=== PATIENT | female | born 1945 | race Caucasian/White ===

== ENCOUNTER 2017-02-11 06:20 | Outpatient (CLI) | payer MEDICARE, BC ==
[2017-02-11] MEDS ORDERED: IOPAMIDOL-300 50 ML VIAL ONE (06:32)
[2017-02-11] MEDS ORDERED: IOPAMIDOL-300 100 ML VIAL ONE (06:32)
[2017-02-11] MEDS ORDERED: IOPAMIDOL-300 50 ML VIAL PO ONE (11:00)
[2017-02-11] MEDS ORDERED: IOPAMIDOL-300 100 ML VIAL IVP ONE (11:00)
--- NOTE | 2017-02-11 14:30 | CT Report ---
EXAM: CT CHEST EXAM DATE: 02/11/2017 09:00 AM. CLINICAL HISTORY: OVARIAN CANCER. COMPARISONS: None. TECHNIQUE: Routine helical CT imaging was performed through the chest. IV contrast: 100 mL Omni 300. Reconstructions: Coronal and sagittal. In accordance with CT protocol optimization, one or more of the following dose reduction techniques w ere utilized for this exam: automated exposure control, adjustment of mA and/or KV based on patient s ize, or use of iterative reconstructive technique. FINDINGS: Lungs/Pleura: Atelectatic changes in the posterior aspect of the lung bases. No focal consolidation, pleural effusion or suspicious pulmonary nodules or masses. Scarring along the anterior aspect of the left upper lobe. Mediastinum: Normal. No adenopathy or masses. The heart and great vessels are normal. Bones: Unremarkable. Visualized Abdomen: Cholelithiasis. Surgical clips are noted in the left upper abdomen. Other: Coarse calcifications in the left breast near the chest wall. IMPRESSION: 1. No suspicious pulmonary nodules or masses. 2. No lymphadenopathy. 3. Cholelithiasis. [facility] Referring Provider Line: [phone] SITE ID: [id number]
--- NOTE | 2017-02-11 15:10 | CT Report ---
EXAM: CT ABDOMEN AND PELVIS EXAM DATE: 02/11/2017 09:00 AM. CLINICAL HISTORY: OVARIAN CANCER. COMPARISONS: None. TECHNIQUE: Routine helical CT imaging was performed through the abdomen and pelvis. IV contrast: Isov ue 300 100mL. Enteric contrast: No. Reconstructions: Coronal and sagittal. In accordance with CT protocol optimization, one or more of the following dose reduction techniques w ere utilized for this exam: automated exposure control, adjustment of mA and/or KV based on patient s ize, or use of iterative reconstructive technique. FINDINGS: Lung Bases: Unremarkable. Liver: Normal. No masses. Gallbladder/Bile Ducts: Multiple tiny stones layer dependently in the gallbladder. Spleen: Normal. Pancreas: Normal. Adrenal Glands: Normal. Kidneys: Normal. No masses or hydronephrosis. Peritoneal Cavity/Bowel: Patent bowel anastomosis in the left abdomen. No lymphadenopathy. The append ix is not visualized. Pelvic Organs: Status post hysterectomy. Vasculature: There is an IVC filter in place. Bones: No significant abnormality. Other: None. IMPRESSION: 1. Status post hysterectomy and partial colectomy with no lymph adenopathy in the abdomen, pelvis or retroperitoneum. 2. Cholelithiasis. [facility] Referring Provider Line: [phone] SITE ID: [id number]
== END 2017-02-11 06:21 | disposition home or self-care (01) ==
LOC: DI 06:20
PROVIDERS: ATTEND Internal Medicine Hematology & Oncology
DX: C56.9 Malignant neoplasm of unspecified ovary (principal); K80.20 Calculus of gallbladder without cholecystitis without obstruction; Z90.710 Acquired absence of both cervix and uterus; Z90.49 Acquired absence of other specified parts of digestive tract
CPT/HCPCS: 71260; 74177; Q9967

== ENCOUNTER 2017-04-28 10:11 | Emergency (ER) | payer MEDICARE, BC ==
[2017-04-28] MEDS ORDERED: cefTRIAXone 1 GM VIAL IM STA (12:55)
[2017-04-28] MEDS ORDERED: LIDOCAINE 1% 2 ML VIAL SUBQ ONE (12:55)
--- NOTE | 2017-04-28 12:57 | ED Physician Documentation ---
History of Present Illness - Stated complaint Stated Complaint: BUMP/BITE ON ADVENTIST - Chief complaint Chief Complaint: General - History obtained from History obtained from: Patient, Family - History of Present Illness Timing: How many days ago (3) - Additonal information Additional information: 72-year-old female was visiting in [place] and she apparently was bit by something in the right synagogue. She has had increased swelling and redness to the right synagogue since that time and she has a small area of skin necrosis in the center of this. She does not know of any bug that bit her she did not feel when it happened she has developed increasing swelling and redness over the past 3 days. Review of Systems Constitutional: denies: Fever Eyes: denies: Decreased vision Ears: denies: Ear pain Nose: denies: Congestion Throat: denies: Sore throat Respiratory: denies: Cough GI: denies: Vomiting Skin: denies: Rash Musculoskeletal: denies: Neck pain, Back pain, Extremity pain Neurologic: denies: Generalized weakness PD PAST MEDICAL HISTORY - Past Medical History Past Medical History: Yes Other Past Medical History: HX of breast cancer, current ovarian cancer. - Past Surgical History Past Surgical History: Yes - Present Medications Home Medications: Ambulatory Orders Medication Instructions Recorded Confirmed Acetylcysteine 1 each MC DAILY 08/01/12 02/23/17 Arginine 500 mg PO DAILY 08/01/12 02/23/17 Astaxanthin 4 mg PO DAILY 08/01/12 02/23/17 Broccoli Flower [Broccoli] 500 mg PO Q3D 08/01/12 02/23/17 Chlorophyllin/[place] [Chlorophyll 2,000 mg PO Q3D 08/01/12 02/23/17 20 mg Tablet] Cholecalciferol (Vitamin D3) 250 unit PO Q2D 08/01/12 02/23/17 [Vitamin D3] Kathi Root 1 gm PO DAILY 08/01/12 02/23/17 Glucosamn/[place]/C/Mn/[place] 1,500 mg PO DAILY 08/01/12 02/23/17 [[facility] Glucosamine Chondroitin Tb] Krill Oil 100 mg PO Q2D 08/01/12 02/23/17 Multivitamin [Multi-Day Vitamins] 1 each PO Q2D 08/01/12 02/23/17 Quercetin Dihydrate 1 gm MC Q2D 08/01/12 02/23/17 [place] Oil/[place]-3 Fatty Acids 200 mg PO DAILY 08/01/12 02/23/17 [[place] Oil 1,000 mg Softgel] Selenium 400 mcg PO Q3D 08/01/12 02/23/17 Turmeric [Curcumin] 1 gm MC DAILY 08/01/12 02/23/17 Ubidecarenone [Coq-10] 100 mg PO Q2D 08/01/12 02/23/17 Vitamin B Complex [Ultra B-100 1 mg PO Q2D 08/01/12 02/23/17 Complex] Potassium Chloride 10 meq PO DAILY 10/31/14 02/23/17 Cyclophosphamide 50 mg PO DAILY 09/11/16 02/23/17 Cyclophosphamide 50 mg PO QPM 12/16/16 02/23/17 Avastan 04/28/17 Clindamycin HCl [Clindamycin 300MG 300 mg PO QID #28 capsule 04/28/17 CAP] Cytoxin 04/28/17 - Allergies Allergies/Adverse Reactions: Allergies Allergy/AdvReac Type Severity Reaction Status Date / Time Sulfa (Sulfonamide Allergy Intermediate Rash Verified 04/28/17 11:21 Antibiotics) - Social History Does the pt smoke?: No Smoking Status: Never smoker Does the pt drink ETOH?: Yes Does the pt have substance abuse?: No - Immunizations Immunizations are current?: Yes PD ED PE NORMAL - Vitals Vital signs reviewed: Yes (Normal) - General General: Alert and oriented X 3, No acute distress, Well developed/nourished - HEENT HEENT: PERRL, EOMI, Other (There is an area on the right synagogue that is erythematous about 4 cm in diameter into the hairline and there is a central area of necrosis that is asymmetric and approximately 0.5 x 1 cm. There is no drainage from the area there is no lymphangitic streaking there is some tender preauricular area without overlying erythema.) - Neck Neck: Supple, no meningeal sign, No bony TTP - Respiratory Respiratory: No respiratory distress - Derm Derm: Normal color, Warm and dry - Extremities Extremities: No deformity, No edema - Neuro Neuro: No motor deficit, No sensory deficit Eye Opening: Spontaneous Motor: Obeys Commands Verbal: Oriented GCS Score: 15 - Psych Psych: Normal mood, Normal affect Results - Vitals Vitals: Vital Signs - 24 hr 04/28/17 10:18 Temperature 35.8 C L Heart Rate 89 Respiratory 18 Rate Blood Pressure 130/71 O2 Saturation 97 Oxygen O2 Source Room air PD MEDICAL DECISION MAKING - ED course Complexity details: considered differential, d/w patient, d/w family ED course: 72-year-old female with what looks like a spider bite to the right synagogue with a large area of central necrosis for spiders in this area. I suspect she may [facility] [place] Here in the emergency department she is administered Rocephin and she is allergic to sulfa so we will use clindamycin. Departure - Departure Disposition: 01 Home, Self Care Clinical Impression: Spider bite wound Qualifiers: Encounter type: initial encounter Injury intent: accidental or unintentional Qualified Code(s): T63.301A - Toxic effect of unspecified spider venom, accidental (unintentional), initial encounter Condition: Stable Instructions: ED Bite Insect Brown Recluse Spider Follow-Up: Terry Krishnamurthy MD [Primary Care Provider] - Prescriptions: Clindamycin HCl [Clindamycin 300MG CAP] 300 mg PO QID #28 capsule
[2017-04-28] MEDS ORDERED: ONDANSETRON ODT 4 MG TABLET TL STA (13:00)
[2017-04-28 13:36] VITALS: BP 138/83
== END 2017-04-28 13:36 | disposition home or self-care (01) ==
LOC: ED 10:11
DX: T63.301A Toxic effect of unspecified spider venom, accidental (unintentional), initial encounter (principal); Z85.3 Personal history of malignant neoplasm of breast; C56.9 Malignant neoplasm of unspecified ovary
CPT/HCPCS: 96372; 99283; Q0162

== ENCOUNTER 2017-09-28 12:03 | Outpatient (CLI) | payer MEDICARE, BC | END 2017-09-28 12:04 | disposition home or self-care (01) | LOC: RT 12:03 | PROVIDERS: ATTEND Internal Medicine Hematology & Oncology | DX: R00.2 Palpitations (principal) | CPT/HCPCS: 93005 ==

== ENCOUNTER 2018-10-07 10:42 | Outpatient (CLI) | payer MEDICARE, BC ==
[2018-10-07] MEDS ORDERED: IOVERSOL 320 50 ML VIAL ONE (10:55)
[2018-10-07] MEDS ORDERED: IOVERSOL 320 100 ML VIAL IVP ONE ×2 (10:55→12:04)
[2018-10-07] MEDS ORDERED: IOVERSOL 320 50 ML VIAL PO ONE (12:04)
--- NOTE | 2018-10-07 13:12 | CT Report ---
Reason: OVARIAN CANCER Procedure Date: 10/07/2018 Accession Number: [id number] / [id number] Procedure: CT - Abdomen/Pelvis W CPT Code: FULL RESULT: EXAM: CT ABDOMEN AND PELVIS EXAM DATE: 10/07/2018 11:59 AM. CLINICAL HISTORY: Ovarian cancer. COMPARISONS: Abdomen/pelvis w/ 04/04/2014 1:26 PM. Imaging report of CT 02/11/2017. TECHNIQUE: Routine helical CT imaging was performed through the abdomen and pelvis. IV contrast: OPTI 320 100 mL. Enteric contrast: No. Reconstructions: Coronal and sagittal. In accordance with CT protocol optimization, one or more of the following dose reduction techniques were utilized for this exam: automated exposure control, adjustment of mA and/or KV based on patient size, or use of iterative reconstructive technique. FINDINGS: Lung Bases: Unremarkable. Liver: Normal. No masses. Gallbladder/Bile Ducts: Cholelithiasis. Spleen: Normal. Pancreas: Normal. Adrenal Glands: Normal. 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 No masses or hydronephrosis. Peritoneal Cavity/Bowel: There is evidence of prior abdominal surgery including large bowel anastomosis. There is no bowel obstruction. There is no free fluid or free air. There is no adenopathy by size criteria. Pelvic Organs: The patient is status post hysterectomy and salpingo-oophorectomy. Vasculature: Moderate atherosclerotic disease without aortic aneurysm. The IVC filter is in place. Bones: No aggressive osseous lesions are detected. Other: None. IMPRESSION: No active disease is detected. IVC filter legs in contact with lumbar spine, correlate to back pain. If IVC filter is no longer indicated, consider removal. [facility]
== END 2018-10-07 10:43 | disposition home or self-care (01) ==
LOC: EDBD → DI 10:42
PROVIDERS: ATTEND Internal Medicine Hematology & Oncology
DX: C79.82 Secondary malignant neoplasm of genital organs (principal); Z85.43 Personal history of malignant neoplasm of ovary
CPT/HCPCS: 74177; Q9967

== ENCOUNTER 2019-07-18 11:45 | Outpatient (CLI) | payer MEDICARE, BC ==
--- NOTE | 2019-07-18 13:39 | CONSULTATION NOTE ---
Palliative Care Consultation - Referral Referring Provider: Dr. Navin Spangler Time of Visit: [id number] Referral setting: [facility] [place] Referral Reason: Recurrent Ovarian Ca/Goals of Care - Information Sources Records reviewed: Previous records reviewed History/Review of Systems obtained from: Patient Exam limitations: No limitations - History of Present Illness Brief History of Present Illness: This is a angus 74-year-old woman with ovarian cancer, originally diagnosed in 08/2006. She has had multiple rounds of chemotherapy, and currently in clinical remission. She continues on oral Cytoxan, methotrexate, 2 days a week. She has done fairly well with this, without significant side effects. She follows a fairly extensive regimen of supplements, overseen by her . These were originally recommended by skyler, but he has been managing these. With her original diagnosis in 2006, she has surgery with a GARETT/BSO and tumor debulking. When she had a recurrence in 2007, she did have a small bowel obstruction, which included surgery to correct her obstruction, this included support through TPN at that point in time. She had a bowel the bowel anastomosis and March 2009 with an exploratory lap. She also has a history of breast cancer with a left lumpectomy at age 59. She perceives this is been an overall fairly chronic disease for her. But does understand the seriousness of her illness, and she is getting down to limited options. She remains quite engaged in her current regimen, hoping for the best and is quite optimistic. She perceives her quality of life is good. She has good social support, and low symptom burden at this point in time. Palliative care meeting with patient to set up rapport, explore goals of care, and follow for support. Medical/Surgical History - Past Medical History Cardiovascular: reports: Deep vein thrombosis Respiratory: reports: None Neuro: None Endocrine/Autoimmune: reports: None GI: reports: Chronic diarrhea (since surgery) ADMISSION SPECIALIST: reports: Ovarian cancer, Breast cancer : reports: None HEENT: reports: None Psych: denies: Depression, Anxiety Musculoskeletal: reports: None MRSA Hx?: No - Past Surgical History /ADMISSION SPECIALIST: reports: Other (lumpectomy left) Cardiovascular: reports: Other (right chest portacath; IVC filter) HEENT: reports: Tonsil/Adenoidectomy Other past surgical history: Hysterctomy 2006 for original Ovarian CA Stage III; Multiple chemotherapies; SBO treated with gastromy tube and TPN; surgery to correct obst. 03/18 Social History - Living Situation Living arrangement: At home Living Situation: With spouse/s.o. Support System: Patient lives at home with her , who is very involved and committed to her and supporting her in her treatment. She has 2 sons and a daughter, a significant amount of support from her girlfriends. She has a group she calls the "[employer]", Have been with her for several years. She is about ready to celebrate her 50th anniversary. She and her have worked together, both now are retired. She does perceive she has good support. Family History - Family History Family History: Mother: ( at age 92), Cancer (mother 68), Father: , Other family: Alive and Well (1/2 brother /sister) Medications/Allergies - Medications Home Medications: Ambulatory Orders Medication Instructions Recorded Confirmed Acetylcysteine 1 each MC DAILY 08/01/12 05/02/19 Arginine 500 mg PO DAILY 08/01/12 05/02/19 Astaxanthin 4 mg PO DAILY 08/01/12 05/02/19 Broccoli Flower [Broccoli] 500 mg PO Q3D 08/01/12 05/02/19 Chlorophyllin/[place] [Chlorophyll 2,000 mg PO Q3D 08/01/12 05/02/19 20 mg Tablet] Cholecalciferol (Vitamin D3) 250 unit PO Q2D 08/01/12 05/02/19 [Vitamin D3] Glucosamn/[place]n/C/Mn/[place] 1,500 mg PO DAILY 08/01/12 05/02/19 [[facility]vs Glucosamine Chondroitin Tb] Multivitamin [Multi-Day Vitamins] 1 each PO Q2D 08/01/12 05/02/19 Quercetin Dihydrate 1 gm MC Q2D 08/01/12 05/02/19 [place] Oil/[place]-3 Fatty Acids 200 mg PO DAILY 08/01/12 05/02/19 [[place] Oil 1,000 mg Softgel] Selenium 400 mcg PO Q3D 08/01/12 05/02/19 Vitamin B Complex [Ultra B-100 1 mg PO Q2D 08/01/12 05/02/19 Complex] Potassium Chloride 10 meq PO DAILY 10/31/14 05/02/19 Cyclophosphamide 50 mg PO DAILY 09/11/16 05/02/19 Lidocaine/Prilocain 2.5% Cream 1 applic TOP ONCE PRN 05/06/17 05/02/19 [Emla 2.5% Cream] Astragalus 1,000 mg PO DAILY 08/10/17 05/02/19 Dandelion 1,575 mg PO DAILY 08/10/17 05/02/19 Echinacea Purpurea,Angustif Xt 400 mg PO DAILY 08/10/17 05/02/19 [Echinacea Extract 125 mg Cap] Folic Acid 300 mg PO DAILY 08/10/17 05/02/19 Ginkgo Biloba [place] Extract [Ginkgo 120 mg PO DAILY 08/10/17 05/02/19 Biloba] Ginseng 500 mg PO DAILY 08/10/17 05/02/19 Goldenseal 1,400 mg PO DAILY 08/10/17 05/02/19 Horny Goat [place] 750 mg PO DAILY 08/10/17 05/02/19 Milk Thistle 480 mg PO DAILY 08/10/17 05/02/19 Stinging Nettle 500 mg PO DAILY 08/10/17 05/02/19 Ondansetron [Ondansetron Odt] 8 mg ORAL Q8HR PRN 08/09/18 05/02/19 Prochlorperazine Maleate 10 mg PO Q6HR PRN 08/09/18 05/02/19 [Compazine] Methotrexate 5 mg PO Q72H 12/27/18 05/02/19 Cyanocobalamin [Vitamin B-12] 1,000 mcg SUBQ ONCE 05/18/19 05/23/19 - Allergies Allergies/Adverse Reactions: Allergies Allergy/AdvReac Type Severity Reaction Status Date / Time Sulfa (Sulfonamide Allergy Intermediate Rash Verified 05/02/19 11:56 Antibiotics) carboplatin Allergy Unknown Verified 05/02/19 11:56 Review of Systems - Constitutional Constitutional: reports: Fatigue, Weight stable - Ears, Nose & Throat Ears, Nose & Throat: reports: Hearing loss (mild) - Cardiovascular Cardiovascular: denies: Edema, Lightheadedness, Decr. exercise tolerance - Respiratory Respiratory: denies: SOB at rest - Gastrointestinal Gastrointestinal: reports: Diarrhea (regular loose stools daily), Good appetite. denies: Nausea, Reflux/heartburn - Integumentary Integumentary: reports: Dryness - Neurological Neurological: reports: Numbness - Psychiatric Psychiatric: denies: Depression, Anxiety - Endocrine Endocrine: reports: Hypothyroidism - Hematologic/Lymphatic Hematologic/Lymphatic: reports: Anemia (11.3; patient takes multiple supplements for support). denies: Recurrent infections - All Other Systems All Other Systems: reports: Reviewed and negative Physical Exam - Physical Exam General Appearance: positive: No acute distress, Alert Eyes Bilateral: positive: Normal inspection ENT: positive: No signs of dehydration Neck: positive: Trachea midline Respiratory: positive: No respiratory distress Abdomen: positive: Soft, Tenderness (mild) Skin: positive: Pallor, Dryness Extremities: positive: No pedal edema Neurologic/Psychiatric: positive: Oriented x3, Mood/affect nml Palliative Care - POLST Patient has POLST: No Pain: No pain Tiredness/Fatigue: Mild (1-3) Drowsiness/Sedation: None Nausea: None Anorexia: None Dyspnea: None Depression: None Anxiety: None Feelings of wellbeing/Perceived Quality of Life: Good, Acceptable, No change Sleep: Sleeps well Performance Status: Patient is quite active, gardens for several hours at a time. She does pace herself. She is able to manage her own ADLs, and presents as an ECOG 0. - Palliative Care Discussion: Patient understands the seriousness of her illness, and at some point there will be more limited treatment options. She has been through multiple lines of chemotherapy, suspect this will continue if this 1 does not work. She sees her disease as fairly chronic, she does not like to think about it or talk about it. She is very and very intentional not to make cancer what she is about, and tends to let her worry more about this. She does understand her worries about her, he is quite protective. She does worry about him losing her. She has been through multiple serious rounds on this journey with her cancer, does feel like she has good coping mechanisms and good support. We did discuss the role of palliative care, though would be limited at this time, will continue to check in to establish ongoing rapport. Given information on palliative care as well as contact information. Results - Lab Results Lab results reviewed: Yes Impression and Recommendations - Palliative Care Impression: This is a angus 74-year-old woman with refractory relapsed ovarian cancer, overall fairly stable on her current regimen and tolerating her oral medications for maintenance therapy. She is participating in supportive care of alternative treatments. Palliative care meeting patient to set rapport, and offer ongoing support. Recommendations/Counseling Done: 1. Diarrhea. Patient does attribute this to large amount of supplements she takes. Did request she get us an updated list to make sure it is reflective of what she is currently taking. She has had some weight loss, though this is been somewhat intentional on her part. She does report adequate calorie and fluid intake. This is been fairly long-term, and not problematic. 2. Advanced care planning. Patient's goals are to continue to integrate treatment into her regular life and schedule, she continues to focus on quality of life as well as quantity. She is been long-term on treatment, this is been a fairly chronic journey for her with some significant ups and downs. Introduced palliative care and role for support, will try to schedule next visit with her and her , and further explore advance care planning documents. Time Spent: 45 minutes with greater than 50% of this done in counseling regarding role of palliative care, exploration of patient's goals, patient presents with low symptom burden, has good social support, will continue to build rapport and provide ongoing support and anticipatory guidance.
== END 2019-07-18 11:46 | disposition home or self-care (01) ==
LOC: PC 11:45
PROVIDERS: ATTEND Nurse Practitioner Adult Health
DX: Z51.5 Encounter for palliative care (principal); C56.9 Malignant neoplasm of unspecified ovary; K52.89 Other specified noninfective gastroenteritis and colitis; Z79.899 Other long term (current) drug therapy; Z85.3 Personal history of malignant neoplasm of breast; Z90.49 Acquired absence of other specified parts of digestive tract
CPT/HCPCS: 99204

== ENCOUNTER 2020-08-08 15:10 | Outpatient (CLI) | payer MEDICARE, BC ==
[2020-08-08] MEDS ORDERED: GADOBUTROL 10 MMOL/10 ML VIAL ONE (15:21)
[2020-08-08] MEDS: GADOBUTROL 10 MMOL/10 ML VIAL IVP ONE (16:50)
--- NOTE | 2020-08-08 17:35 | MRI Report ---
PROCEDURE: Lumbar Spine W/WO INDICATIONS: OVARIAN CA, LOW BACK PAIN CONTRAST: IV CONTRAST: Gadavist ml: 7.4 TECHNIQUE: Noncontrast sagittal T1 spin echo and T2 fast spin echo, sagittal STIR, axial T1 and T2 fast spin ech o through the lumbar spine. In cases with scoliosis, additional coronal T2 fast spin echo may be per formed. After the administration of contrast, sagittal and axial T1 spin echo with fat saturation th rough the lumbar spine. COMPARISON: None. FINDINGS: Image quality: Excellent. Alignment and curvature: There is normal bony alignment. Marrow: Marrow is of normal overall signal. Abnormal T1 and T2 signal is present at L1. There is co mpression deformity measuring approximately 54%. Mild appearance of enhancement is identified. No vis ualized associated enhancing soft tissue mass. Spinal cord: Conus medullaris terminates at the L1-L2 level. Visualized spinal cord demonstrates no rmal signal, without suspicious enhancement. Paraspinous soft tissues: No paravertebral masses or abnormal enhancement. Discs: Severe desiccation is present of the lumbar spine. T12-L1: Minimal disc bulge with minimal spinal stenosis. No foraminal narrowing. L1-L2: No disc bulge, spinal stenosis or foraminal narrowing. Facet and ligamentum flavum hypertro phy are present. L2-L3: Mild disc bulge with minimal canal narrowing. Minimal to mild left foraminal narrowing with facet and ligamentum flavum hypertrophy. L3-L4: Mild disc bulge with minimal spinal stenosis. [id number]-[id number] right foraminal narrowing wit h facet and ligamentum flavum hypertrophy. L4-L5: Mild disc bulge with mild spinal stenosis. Minimal to mild bilateral foraminal narrowing wit h facet and ligamentum flavum hypertrophy. L5-S1: Mild disc bulge without spinal stenosis. Moderate bilateral foraminal narrowing with facet a nd ligamentum flavum hypertrophy. IMPRESSION: 1. 54% compression fracture, appearing acute/subacute at L1 without spinal stenosis. While there is n o associated paravertebral soft tissue mass, there are patchy areas of abnormal signal identified thr oughout the vertebral body suggestive of pathologic fracture. 2. Multilevel degenerative changes. Reviewed by: Pricila Almanza MD on 08/08/2020 5:34 PM PDT Approved by: Pricila Almanza MD on 08/08/2020 5:34 PM PDT Station ID: [id number]
== END 2020-08-08 15:11 | disposition home or self-care (01) ==
LOC: DI 15:10
PROVIDERS: ATTEND Internal Medicine
DX: M48.56XA Collapsed vertebra, not elsewhere classified, lumbar region, initial encounter for fracture (principal); M48.05 Spinal stenosis, thoracolumbar region; M47.816 Spondylosis without myelopathy or radiculopathy, lumbar region; M48.061 Spinal stenosis, lumbar region without neurogenic claudication; M48.07 Spinal stenosis, lumbosacral region
CPT/HCPCS: 72158; A9585

== ENCOUNTER 2020-08-09 15:09 | Emergency (ER) | payer MEDICARE, BC ==
--- OUTSIDE RECORDS SUMMARY | 2020-08-09 15:12 | EXTERNAL MEDICAL SUMMARY RPT | Continuity of Care Document ---
:1945 Demographics Phone Unavailable Preferred Language Unknown Marital Status Unknown Adventist Affiliation Unknown Race Unknown Ethnic Group Unknown Author Organization [place] Address [address] [place] [address] Phone Allergies Encounters Medications Problems date description facility [id number] Ovarian CA, inpatient chemotherapy [facility] treatment Results
--- OUTSIDE RECORDS SUMMARY | 2020-08-09 15:18 | EXTERNAL MEDICAL SUMMARY RPT | Continuity of Care Document ---
:1945 Demographics Phone Unavailable Preferred Language Unknown Marital Status Unknown Rastafarian Affiliation Unknown Race Unknown Ethnic Group Unknown Author Organization [place] Address [address] [place] [address] Phone Allergies Encounters Medications Problems date description facility [id number] Ovarian CA, inpatient chemotherapy [facility] treatment Results
[2020-08-09 15:32] VITALS: BP 142/65
--- NOTE | 2020-08-09 16:08 | ED Physician Documentation ---
History of Present Illness - Stated complaint Stated Complaint: BACK PX - Chief complaint Chief Complaint: Back Pain - History obtained from History obtained from: Patient, Family () - Additonal information Additional information: 75-year-old woman with history of metastatic ovarian cancer and treatment intermittently over the past several years presents with back pain intermittent over the past month, found to have L1 compression fracture by her oncologist and sent here for referral to spine surgery as well as for pain control. The patient states that she feels fine at present and would like a refill on her prescription for Robaxin. Denies numbness or weakness, groin anesthesia, urinary or fecal incontinence or retention. Review of Systems Skin: denies: Lesions Musculoskeletal: reports: Back pain Neurologic: denies: Focal weakness, Numbness PD PAST MEDICAL HISTORY - Past Medical History Past Medical History: Yes Cardiovascular: Deep vein thrombosis Respiratory: None Neuro: None Endocrine/Autoimmune: None GI: Chronic diarrhea HOME ECONOMIST: Ovarian cancer, Breast cancer : None HEENT: None Musculoskeletal: None - Past Surgical History Past Surgical History: Yes /HOME ECONOMIST: Other Cardiovascular: Other HEENT: Tonsil/Adenoidectomy - Present Medications Home Medications: Ambulatory Orders Medication Instructions Recorded Confirmed Acetylcysteine 1 each MC DAILY 08/01/12 08/01/20 Arginine 500 mg PO DAILY 08/01/12 08/01/20 Astaxanthin 4 mg PO DAILY 08/01/12 08/01/20 Broccoli Flower [Broccoli] 500 mg PO Q3D 08/01/12 08/01/20 Chlorophyllin/[place] [Chlorophyll 2,000 mg PO Q3D 08/01/12 08/01/20 20 mg Tablet] Cholecalciferol (Vitamin D3) 250 unit PO Q2D 08/01/12 08/01/20 [Vitamin D3] Glucosamn/[place]/C/Mn/[place] 1,500 mg PO DAILY 08/01/12 08/01/20 [Cvs Glucosamine Chondroitin Tb] Multivitamin [Multi-Day Vitamins] 1 each PO Q2D 08/01/12 08/01/20 Quercetin Dihydrate 1 gm MC Q2D 08/01/12 08/01/20 [place] Oil/[place]-3 Fatty Acids 200 mg PO DAILY 08/01/12 08/01/20 [[place] Oil 1,000 mg Softgel] Selenium 400 mcg PO Q3D 08/01/12 08/01/20 Vitamin B Complex [Ultra B-100 1 mg PO Q2D 08/01/12 08/01/20 Complex] Potassium Chloride 10 meq PO DAILY 10/31/14 08/01/20 Cyclophosphamide 50 mg PO DAILY 09/11/16 08/01/20 Lidocaine/Prilocain 2.5% Cream 1 applic TOP ONCE PRN 05/06/17 08/01/20 [Emla 2.5% Cream] Astragalus 1,000 mg PO DAILY 08/10/17 08/01/20 Dandelion 1,575 mg PO DAILY 08/10/17 08/01/20 Echinacea Purpurea,Angustif Xt 400 mg PO DAILY 08/10/17 08/01/20 [Echinacea Extract 125 mg Cap] Folic Acid 300 mg PO DAILY 08/10/17 08/01/20 Ginkgo Biloba [place] Extract [Ginkgo 120 mg PO DAILY 08/10/17 08/01/20 Biloba] Ginseng 500 mg PO DAILY 08/10/17 08/01/20 Goldenseal 1,400 mg PO DAILY 08/10/17 08/01/20 Horny Goat [place] 750 mg PO DAILY 08/10/17 08/01/20 Milk Thistle 480 mg PO DAILY 08/10/17 08/01/20 Stinging Nettle 500 mg PO DAILY 08/10/17 08/01/20 Ondansetron [Ondansetron Odt] 8 mg ORAL Q8HR PRN 08/09/18 08/01/20 Prochlorperazine Maleate 10 mg PO Q6HR PRN 08/09/18 08/01/20 [Compazine] Methotrexate [Methotrexate Sodium] 2.5 mg PO DAILY 12/27/18 08/01/20 Cyanocobalamin [Vitamin B-12] 1,000 mcg SUBQ ONCE 05/18/19 08/01/20 methocarbamoL [Robaxin] 1 tablet PO Q6HR PRN 08/08/20 08/08/20 methocarbamoL [Robaxin] 500 mg PO Q8H PRN #90 tablet 08/09/20 - Allergies Allergies/Adverse Reactions: Allergies Allergy/AdvReac Type Severity Reaction Status Date / Time Sulfa (Sulfonamide Allergy Intermediate Rash Verified 08/09/20 15:32 Antibiotics) carboplatin Allergy Unknown Verified 08/09/20 15:32 - Social History Does the pt smoke?: No Smoking Status: Never smoker Does the pt drink ETOH?: Yes Does the pt have substance abuse?: No - Immunizations Immunizations are current?: Yes - POLST Patient has POLST: No PD ED PE NORMAL - Vitals Vital signs reviewed: Yes - General General: Alert and oriented X 3, No acute distress, Well developed/nourished - HEENT HEENT: Atraumatic, PERRL, EOMI - Neck Neck: No bony TTP - Back Back: Other (lumbar spine discomfort to palpation) - Derm Derm: Normal color - Extremities Extremities: No deformity, Other (2+ bilateral DP pulses. normal sensation and strength. ambulatory without difficulty) - Neuro Neuro: Alert and oriented X 3, No motor deficit, No sensory deficit Results - Vitals Vitals: Vital Signs - 24 hr 08/09/20 15:28 Heart Rate 80 Respiratory 14 Rate Blood Pressure 142/65 H O2 Saturation 100 Oxygen O2 Source Room air PD MEDICAL DECISION MAKING - ED course ED course: Patient declining pain medication, requesting a refill for her Robaxin. She will follow up with her oncologist. Return precautions given. Departure - Departure Disposition: Home, Self Care Clinical Impression: Compression fracture of L1 lumbar vertebra, Back pain Condition: Good Instructions: ED Fx Comp Vertebral Follow-Up: Navin Spangler MD [Physician No Access] - Prescriptions: methocarbamoL [Robaxin] 500 mg PO Q8H PRN #90 tablet PRN Reason: Pain Comments: It was a pleasure meeting you today. Please follow-up with your oncologist this week in regards to referral to pain management and spine surgery. Take your muscle relaxer as needed for pain. You may need physical therapy. Return to the emergency department if you experience any new or worsening symptoms or have other concerns. I am providing you a referral for evaluation by a spine surgeon at the spine program at [facility] in [place]. The Spine Program at [facility] offers complete care for back and spine conditions. Location: [address] [place] [address]
== END 2020-08-09 16:19 | disposition home or self-care (01) ==
LOC: ED 15:09
DX: M48.56XA Collapsed vertebra, not elsewhere classified, lumbar region, initial encounter for fracture (principal); M54.9 Dorsalgia, unspecified; C79.60 Secondary malignant neoplasm of unspecified ovary
CPT/HCPCS: 99282; 99284

== ENCOUNTER 2020-08-15 10:53 | Outpatient (CLI) | payer MEDICARE, BC ==
--- NOTE | 2020-08-15 12:14 | CONSULTATION NOTE ---
Palliative Care Follow Up - Referral Referring Provider: Dr. Navin Spangler Time of Visit: 1145 60 min Referral setting: [facility] Referral Reason: Acute Back Pain/Met Ovarian CA - Information Sources Records reviewed: Previous records reviewed History/Review of Systems obtained from: Patient, Family () - History of Present Illness Update Brief HPI Update: This is a angus 75-year-old woman with ovarian cancer, with original diagnosis back in 08/2006. She has had multiple rounds of chemotherapy, and with the original diagnosis in 2006 had a surgery with a TA H/BSO and tumor debulking. She did have a recurrence in 2007 with small bowel obstruction, for which she was on TPN for 9 months, she has since had surgery to correct obstruction with some residual diarrhea. Her most recent progression was at the vaginal apex in 05/2020, she had been restarted on gemcitabine/Taxol 08/07/2020, after trial of carbo/Taxol with recurrent reactions to the carboplatinum. She does have some persistent fatigue, unfortunately most recently she presented with acute back pain. Sounds like she has had some chronic lower back pain for last 2-/2 3 months which was exacerbated with heavy lifting, But then had an acute exacerbation after lifting some heavy concrete blocks at that point in time most likely sustained her L T1 compression fracture. She was seen in the ED on , which showed a 54% compression fracture appearing acute/subacute at L1 without spinal stenosis and no associated paravertebral soft mass, there were patchy areas of abnormal signal identified throughout the vertebral body suggestive of a pathologic fracture. They are awaiting referral to the spine clinic, she originally had acute 10 out of 10 pain, this is slowly improved but still remains quite uncomfortable with a 7 out of 10 today. She is taking Robaxin 500 mg every 8 hours, supplemented with ibuprofen 200 mg every 4 hours with better control pain. Pain is worse with heat, twisting, sitting, relieved with position changes, ice, and medication.She would like to avoid opioids if possible, and would like not to make any dramatic changes until she sees the green building design specialist. Her functional status is impacted in the context she is ambulating with a walker at home, is fairly fatigued both from her residual from chemotherapy as well as the pain, she still has had some residual incontinence, concern for retention, she has ongoing diarrhea as a result of her reanastomosis. Patient also has persistent and worsening peripheral neuropathy, describes this as numbness and denies any tingling or pain with this. Past Medical History: DVT, chronic diarrhea, ovarian cancer, breast cancer, left lumpectomy, right chest Port-A-Cath, IVC filter, tonsil/adenectomy, hysterectomy 2006 for original ovarian CA stage III, multiple chemotherapies, SBO treated with gastrostomy tube and TPN, with surgery to correct obstruction 03/18 Social History - Living Situation Living arrangement: At home Living Situation: With spouse/s.o. Support System: Patient is here with her Terry, he is actively involved in her care and provides significant amount of support. He does have his own regimen of supplements and other supportive therapies he integrates into her care. They have been for over 51 years, live in [place]. Medications/Allergies - Medications Home Medications: Ambulatory Orders Medication Instructions Recorded Confirmed Cholecalciferol (Vitamin D3) 250 unit PO Q2D 08/01/12 08/15/20 [Vitamin D3] [place] Oil/[place]-3 Fatty Acids 200 mg PO DAILY 08/01/12 08/15/20 [[place] Oil 1,000 mg Softgel] Selenium 400 mcg PO .Q 2 DAYS 08/01/12 08/15/20 Vitamin B Complex [Ultra B-100 1 mg PO Q2D 08/01/12 08/15/20 Complex] Potassium Chloride 10 meq PO .Q2DAYS 10/31/14 08/15/20 Lidocaine/Prilocain 2.5% Cream 1 applic TOP ONCE PRN 05/06/17 08/15/20 [Emla 2.5% Cream] Astragalus 1,000 mg PO DAILY 08/10/17 08/15/20 Echinacea Purpurea,Angustif Xt 400 mg PO DAILY 08/10/17 08/15/20 [Echinacea Extract 125 mg Cap] Folic Acid 300 mg PO .Q2 DAYS 08/10/17 08/15/20 Ginkgo Biloba [place] Extract [Ginkgo 120 mg PO DAILY 08/10/17 08/15/20 Biloba] Goldenseal 1,400 mg PO DAILY 08/10/17 08/15/20 Horny Goat [place] 750 mg PO DAILY 08/10/17 08/15/20 Milk Thistle 480 mg PO DAILY 08/10/17 08/15/20 Stinging Nettle 500 mg PO DAILY 08/10/17 08/15/20 Ondansetron [Ondansetron Odt] 8 mg ORAL Q8HR PRN 08/09/18 08/15/20 Cyanocobalamin [Vitamin B-12] 1,000 mcg SUBQ .MONTHLY 05/18/19 08/15/20 methocarbamoL [Robaxin] 500 mg PO Q8H PRN #90 tablet 08/09/20 08/15/20 Ascorbic Acid [Vitamin C] 1 cap PO .Q2DAY 08/15/20 08/15/20 Calcium Carbonate [Calcium] 1 cap PO .Q2 DAY 08/15/20 08/15/20 Copper [Paragard T 380-A] 1 tab PO .Q2DAY 08/15/20 08/15/20 Ferrous Bis-Glycinate Chelate 1 tab PO .Q 2DAYS 08/15/20 08/15/20 [Iron Glycinate] HYDROcod/ACETAM 5/325 [[place] 5/325] 1 - 2 tab PO Q4HR PRN MDD 8 08/15/20 08/15/20 Ibuprofen 200 mg PO Q4HR 08/15/20 08/15/20 Magnesium 1 cap PO .Q2DAY 08/15/20 08/15/20 Resveratrol 1 cap PO DAILY 08/15/20 Tumeric 1 cap PO DAILY 08/15/20 Vitamin E 1 cap PO .Q2DAY 08/15/20 08/15/20 Zinc Gluconate [Zinc] 1 tab PO .Q2 DAY 08/15/20 08/15/20 - Allergies Allergies/Adverse Reactions: Allergies Allergy/AdvReac Type Severity Reaction Status Date / Time Sulfa (Sulfonamide Allergy Intermediate Rash Verified 08/09/20 15:32 Antibiotics) carboplatin Allergy Unknown Verified 08/09/20 15:32 Review of Systems - Constitutional Constitutional: reports: Fatigue (persistent; worsened with chemo), Weakness, Weight loss (lost 20 pounds over last few months, regained 9) - Ears, Nose & Throat Ears, Nose & Throat: denies: Mouth lesions - Cardiovascular Cardiovascular: reports: Decr. exercise tolerance. denies: Chest pain, Edema - Respiratory Respiratory: reports: SOB with exertion. denies: Cough - Gastrointestinal Gastrointestinal: reports: Diarrhea (intermittent loperamide), Early satiety, Good appetite. denies: Nausea (uses antiemetic for several days after tx with good results) - Genitourinary Genitourinary: reports: Dysuria, Incontinence - Musculoskeletal Musculoskeletal: reports: Back pain, Muscle aches, Stiffness, Limited range of motion, Muscle weakness, Assistive devices (uses a walker at home) - Integumentary Integumentary: reports: Dryness, Hair changes (alopecia) - Neurological Neurological: reports: General weakness, Numbness (worsening in LE) - Psychiatric Psychiatric: reports: Anxiety. denies: Depression - Hematologic/Lymphatic Hematologic/Lymph: denies: Recurrent infections (negative UA) - All Other Systems All Other Systems: reports: Reviewed and negative Physical Exam - Vital Signs Pulse Rate: 82 Respiratory Rate: 18 Blood Pressure: 112/68 - Physical Exam General Appearance: positive: Alert, Mild distress (appears with pain behaviors; difficulty sitting) Eyes Bilateral: positive: Normal inspection, Other (periorbital edema) Neck: positive: Trachea midline Respiratory: positive: No respiratory distress Skin: positive: Pallor, Dryness Extremities: positive: No pedal edema Neurologic/Psychiatric: positive: Oriented x3 Palliative Care - POLST Patient has POLST: No Pain: Pain improved, Location (band across back), Severity (09/15), Comment (using robaxin 500 mg q8 and ibuprofen 200 mg q4 ATC) Tiredness/Fatigue: Mild (1-3) Drowsiness/Sedation: Mild (1-3) Nausea: None Anorexia: Mild (1-3) Dyspnea: Mild (1-3) Depression: Mild (1-3) Anxiety: Mild (1-3) Feelings of wellbeing/Perceived Quality of Life: Fair, Acceptable, Improved Sleep: Variable sleep pattern Performance Status: Patient has had a decline in functional status, this is attributed both to persistent fatigue from chemotherapy as well as her pain.She does use a walker at home, does have some increased pain getting from sitting to standing, is able to manage her ADLs and does have her to assist - Palliative Care Discussion: Patient seen over a year ago with low symptom burden, during the pandemic, I perceived her condition is a chronic condition and taken in stride. She does report with recurrent disease this last early winter, did have some depression but is feeling she is taking things in stride again. She feels like she has good support, was disappointed her carboplatinum trial failed, she is now starting a new treatment. Continues to focus on the positive. Results - Lab Results Lab results reviewed: Yes Impression and Recommendations - Palliative Care Impression: This is a angus 75-year-old woman with recurrent ovarian cancer the vaginal cuff, unfortunately did not tolerate her carboplatinum regimen, is transitioning to gemcitabine and Taxol. She in the meantime is presented with an acute L1 compression fracture, with sequela of acute pain. This is improved somewhat, but is still impacting both comfort and functional level. Palliative care meeting with patient to review pain and symptom management as well as develop rapport in the setting of stage IV disease Recommendations/Counseling Done: 1. Acute pain secondary to L1 compression fracture. MRI reads it as most likely a pathologic fracture, does have a bone DEXA scan from 2016 that did show osteopenia, has been on long-term treatment. None of her previous CT scans note any osseous lytic lesions, has impact her functional status is well as increased severity of pain. She is awaiting consult from spine clinic. She is somewhat hesitant to make any changes until she has had an evaluation. She is currently taking ibuprofen 200 mg every 4 hours [id number], as well as Robaxin 500 mg every 8 hours, though does report the spasm component has improved. Counseling provided regarding options, recommended topical Salonpas to area, on in a.m. and off in p.m. He is uncomfortable for her, rec commended continue with icing. She is currently on an NSAID ibuprofen 200 mg every 4 hours, recommended considering transition to leave 1 AM and p.m. for decreased pill burden as well as some minor improvement in side effects. Given the fluctuating nature of her pain, and likely for exacerbation with injury, I did prescribe hydrocodone 5 mg / 325 mg APAP 1-2 tabs every 4 hours not to exceed 8 tabs. Reviewed could use for rescue pain, also encourage could supplement her pain regimen with one half tab on schedule every 4 hours to see if improved management. Will follow up with her next week, or after she is seen spine surgeon, if needs further long-acting medication/PT referral. Patient is taking adequate precautions, using walker and fall precautions. 2. Recurrent ovarian cancer at vaginal cuff. Patient has been heavily treated over the last 12 years for her ovarian cancer, reports she is taking this in stride, has not had any persistent side effects other than worsening numbness, no peripheral neuropathic pain. May be limiting factor. 3. Stress incontinence. We will continue to monitor, does not appear to have retentive symptoms, but certainly concern for spinal cord compression and/or tumor compression in the pelvic region. Patient did have a UA to rule out infection. Patient reports at this point in time no further bleeding episodes. 4. Advanced care planning. Patient with supportive community, has continued to be quite positive and persist, integrating via her 's focus of alternative treatments and supplements. Did get updated list given concern for interactions particular with antioxidants, will continue to monitor.Meeting with patient and first time with palliative care over a year, will continue to explore goals of care as well as develop rapport. 60 minutes With review of oncology notes, MRI, labs, medications, [id number] for patient evaluation, counseling regarding pain medication and management and coordination with oncology team
== END 2020-08-15 10:54 | disposition home or self-care (01) ==
LOC: PC 10:53
PROVIDERS: ATTEND Nurse Practitioner Adult Health
DX: Z51.5 Encounter for palliative care (principal); M48.56XA Collapsed vertebra, not elsewhere classified, lumbar region, initial encounter for fracture; C56.9 Malignant neoplasm of unspecified ovary; N39.3 Stress incontinence (female) (male); Z79.899 Other long term (current) drug therapy
CPT/HCPCS: 99215

== ENCOUNTER 2020-09-04 08:45 | Outpatient (CLI) | payer MEDICARE, BC ==
--- NOTE | 2020-09-04 12:56 | CONSULTATION NOTE ---
Palliative Care Follow Up - Referral Referring Provider: Dr. Navin Spangler Time of Visit: 0831 Referral setting: [facility] [place] Referral Reason: Acute on Chronic Back Pain/Met Ovarian CA - Information Sources Records reviewed: Previous records reviewed History/Review of Systems obtained from: Patient Exam limitations: No limitations - History of Present Illness Update Brief HPI Update: This is a angus 75-year-old woman with ovarian cancer, with original diagnosis in 08/2006. She has had multiple rounds of chemotherapy, and with most recent progression at vaginal apex 05/2020, she has restarted on gemcitabine/Taxol on 08/07/2020. She has been tolerating it fairly well, has had some fatigue, her most problematic issue has been an acute L1 compression fracture, that showed 54% compression, without spinal stenosis. It has continued to improve, she is currently taking Robaxin and Tylenol about every 8 hours, does use some ice for relief, but has returned to a better level of function. She does have hydrocodone 5 mg/acetaminophen 325 mg for acute pain if needed but has not had any problems with this. She did see the spinal clinic, they encouraged her to wear a brace, and most likely will take about 6 months to heal. She also was to have a follow-up test, and follow-up with conversation at the spine clinic gets lumbar x-rays, they are going to send the order. 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 She has i ntermittent loose stools, she is able to control these with Imodium, has remained weight neutral, and denies depression or anxiety. Past Medical History: DVT, chronic diarrhea, ovarian cancer, breast cancer left lumpectomy, right chest Port-A-Cath, IVC filter, tonsil/adenectomy, hysterectomy 2006 for original ovarian CA stage III, multiple rounds of chemotherapy, SBO treated with gastrostomy tube and TPN with surgical to correct obstruction 03/2009 Social History - Living Situation Living arrangement: At home Living Situation: With spouse/s.o. Support System: Patient lives at home with her Terry, who is actively involved in his care and provides support as well as he titrates his own regimen of supplements for her and other supportive therapies that he integrates into her care. They have been over 51 years and live in [place]. She is pleased to have been able to reconnect with her community, they have been of course isolated because of the pandemic. They do have children but do not live close by. Medications/Allergies - Medications Home Medications: Ambulatory Orders Medication Instructions Recorded Confirmed Cholecalciferol (Vitamin D3) 250 unit PO Q2D 08/01/12 08/20/20 [Vitamin D3] [place] Oil/[place]-3 Fatty Acids 200 mg PO DAILY 08/01/12 08/20/20 [[place] Oil 1,000 mg Softgel] Selenium 400 mcg PO .Q 2 DAYS 08/01/12 08/20/20 Vitamin B Complex [Ultra B-100 1 mg PO Q2D 08/01/12 08/20/20 Complex] Potassium Chloride 10 meq PO .Q2DAYS 10/31/14 08/20/20 Lidocaine/Prilocain 2.5% Cream 1 applic TOP ONCE PRN 05/06/17 08/20/20 [Emla 2.5% Cream] Astragalus 1,000 mg PO DAILY 08/10/17 08/20/20 Echinacea Purpurea,Angustif Xt 400 mg PO DAILY 08/10/17 08/20/20 [Echinacea Extract 125 mg Cap] Folic Acid 300 mg PO .Q2 DAYS 08/10/17 08/20/20 Ginkgo Biloba [place] Extract [Ginkgo 120 mg PO DAILY 08/10/17 08/20/20 Biloba] Goldenseal 1,400 mg PO DAILY 08/10/17 08/20/20 Horny Goat [place] 750 mg PO DAILY 08/10/17 08/20/20 Milk Thistle 480 mg PO DAILY 08/10/17 08/20/20 Stinging Nettle 500 mg PO DAILY 08/10/17 08/20/20 Ondansetron [Ondansetron Odt] 8 mg ORAL Q8HR PRN 08/09/18 08/20/20 Cyanocobalamin [Vitamin B-12] 1,000 mcg SUBQ .MONTHLY 05/18/19 08/20/20 methocarbamoL [Robaxin] 500 mg PO Q8H PRN #90 tablet 08/09/20 08/20/20 Ascorbic Acid [Vitamin C] 1 cap PO .Q2DAY 08/15/20 08/20/20 Calcium Carbonate [Calcium] 1 cap PO .Q2 DAY 08/15/20 08/20/20 Copper [Paragard T 380-A] 1 tab PO .Q2DAY 08/15/20 08/20/20 Ferrous Bis-Glycinate Chelate 1 tab PO .Q 2DAYS 08/15/20 08/20/20 [Iron Glycinate] HYDROcod/ACETAM 5/325 [[place] 5/325] 1 - 2 tab PO Q4HR PRN MDD 8 08/15/20 08/20/20 Ibuprofen 200 mg PO Q4HR 08/15/20 08/20/20 Magnesium 1 cap PO .Q2DAY 08/15/20 08/20/20 Resveratrol 1 cap PO DAILY 08/15/20 08/20/20 Tumeric 1 cap PO DAILY 08/15/20 08/20/20 Vitamin E 1 cap PO .Q2DAY 08/15/20 08/20/20 Zinc Gluconate [Zinc] 1 tab PO .Q2 DAY 08/15/20 08/20/20 - Allergies Allergies/Adverse Reactions: Allergies Allergy/AdvReac Type Severity Reaction Status Date / Time Sulfa (Sulfonamide Allergy Intermediate Rash Verified 08/09/20 15:32 Antibiotics) carboplatin Allergy Unknown Verified 08/09/20 15:32 Review of Systems - Constitutional Constitutional: reports: Fatigue (remains persistent), Weakness - Eyes Eyes: reports: Other (watery eyes) - Ears, Nose & Throat Ears, Nose & Throat: denies: Mouth lesions - Cardiovascular Cardiovascular: reports: Decr. exercise tolerance. denies: Chest pain, Edema - Respiratory Respiratory: reports: SOB with exertion. denies: Cough - Gastrointestinal Gastrointestinal: reports: Diarrhea (intermittent loperamide; has dumping syndrome-avg 4/day), Early satiety, Good appetite. denies: Nausea (uses antiemetic for several days after tx with good results) - Genitourinary Genitourinary: reports: Dysuria, Incontinence - Musculoskeletal Musculoskeletal: reports: Back pain, Muscle aches, Stiffness, Limited range of motion, Muscle weakness - Integumentary Integumentary: reports: Dryness, Hair changes (alopecia) - Neurological Neurological: reports: General weakness, Numbness (worsening in LE; numbness mostly; burning sensation at night) - Psychiatric Psychiatric: reports: Anxiety. denies: Depression - Hematologic/Lymphatic Hematologic/Lymph: reports: Anemia. denies: Recurrent infections - All Other Systems All Other Systems: reports: Reviewed and negative Physical Exam - Physical Exam General Appearance: positive: No acute distress, Alert Eyes Bilateral: positive: Normal inspection, Other (eyes watery) Neck: positive: Trachea midline Respiratory: positive: No respiratory distress Skin: positive: Pallor, Dryness Extremities: positive: No pedal edema Neurologic/Psychiatric: positive: Oriented x3, Mood/affect nml Palliative Care - POLST Patient has POLST: No Pain: Pain improved, Location (lower lumbar area), Severity (4/10), Pattern (increases through day with activity; relieved with resting in bed) - Palliative Care Discussion: Patient is quite pragmatic about her approach to long-term management of her disease, does feel quite fortunate she is continue to do well, she has had friends who have passed from ovarian cancer. She is feeling better with her pain improved, it is only thing is limiting her at this point, otherwise she is back to her usual activities other than some persistent fatigue that can be limiting. She feels like she has good community support both from friends and from [facility] staff, denies depression or anxiety, and sees her self and as a team. Does not identify anything that she has questions or concerns about, will continue to follow through palliative care as treatment options are becoming more limited. Results - Lab Results Lab results reviewed: Yes Impression and Recommendations - Palliative Care Impression: This is a angus 75-year-old woman with recurrent ovarian cancer of the vaginal cuff, and is currently receiving gemcitabine and Taxol. She does have an acute on chronic pain from her L1 compression fracture, which is slowly improving. She did have a consult with spinal clinic, only follow-up is a lumbar x-ray. Her comfort level and functional level continue improved. Palliative care meeting with patient review pain and symptom management and continue develop rapport in the setting of stage IV disease Recommendations/Counseling Done: 1. Acute on chronic pain secondary to L1 compression fracture she is having some improvements with this, currently is using Robaxin related to the spasm component, with Tylenol. She is not using any NSAIDs currently secondary her concern regarding platelets. She does have fluctuating nature of her pain, has not had any further injury or exacerbation. She has not trialed the Salonpas patches yet, I did encourage her as she is trying to avoid further medications. Call to spine clinic; plan for lumbar xrays, will send to DI. Patient notified. 2. Chemotherapy-induced peripheral neuropathy. Did discuss options, recommended pregabalin 25 mg small dose at bedtime to help with burning sensation and discomfort, she will explore and let me know. We also talked about Acetyl l- carnitine given the multiple supplements she is on, she does think she has been on it before but is not currently taking it, given her interest in supplements recommended considering restarting. . 3. Fatigue. Patient does pace her activities, feels like she is only limited by her back pain and spasms at this time, oncology is looking at supporting her with iron transfusions she does feel like she is doing well with food and fluids. Does enjoy working in her garden, but is being careful with her back. 4. Advanced care planning. Patient does have good social support, does understand the seriousness of her illness, though it has been quite chronic for her in the context of multiple treatments over the years. She denies any a nxiety and continues to integrate supportive therapies into her overall care plan. Palliative care continue to build rapport, and will see patient intermittently for monitoring of symptoms 45 minutes With review of records, labs, coordination of care with spinal clinic, [id number] with patient for evaluation of symptoms and psychosocial support.
== END 2020-09-04 08:46 | disposition home or self-care (01) ==
LOC: PC 08:45
PROVIDERS: ATTEND Nurse Practitioner Adult Health
DX: Z51.5 Encounter for palliative care (principal); K52.9 Noninfective gastroenteritis and colitis, unspecified; M48.56XA Collapsed vertebra, not elsewhere classified, lumbar region, initial encounter for fracture; G62.0 Drug-induced polyneuropathy; T45.1X5A Adverse effect of antineoplastic and immunosuppressive drugs, initial encounter; R53.83 Other fatigue; C56.9 Malignant neoplasm of unspecified ovary
CPT/HCPCS: 99215

== ENCOUNTER 2020-09-18 09:46 | Outpatient (CLI) | payer MEDICARE, BC ==
--- NOTE | 2020-09-18 16:54 | CONSULTATION NOTE ---
Palliative Care Follow Up - Referral Referring Provider: Dr. Navin Spangler Time of Visit: 0945 45 minutes Referral setting: [facility] [place] Referral Reason: Acute on Chronic Back Pain/Met Ovarian CA/Goals of Care - Information Sources Records reviewed: Previous records reviewed History/Review of Systems obtained from: Patient Exam limitations: No limitations - History of Present Illness Update Brief HPI Update: This is a angus 75-year-old woman with ovarian cancer, has been on multiple treatments since her initial stage IIIc ovarian cancer diagnosed in 08/2006. Currently she is on gemcitabine/Taxol, she has had persistent fatigue, and today presents with some thrombocytopenia. She does have an acute L1 compression fracture that is currently healing, she is doing well with minimal medication, she is wearing her back brace, Salonpas to painful area, unfortunately spinal clinic did not send order for lumbar x-rays. Reports continued improvement of her back pain, worsens with prolonged activity, worsening fatigue, but overall is improving. At this point we will forego the x-rays, unless she has a worsening. She does report twisting makes it worse, but is currently tolerable at a 3/10. Patient does have chemotherapy-induced peripheral neuropathy with some worsening numbness particularly right leg, with sensation of heat particularly at night. She has intermittent loose stools which she uses intermittent Imodium, she remains fairly weight neutral, and denies any depression or anxiety. Her most persistent symptom has been her fatigue. Past Medical History: DVT, chronic diarrhea, ovarian cancer breast cancer left lumpectomy, right chest Port-A-Cath, IVC filter, tonsils/adenectomy, hysterectomy 2006 for regional ovarian cancer stage III, multiple rounds of chemotherapy, SBO treated with gastrostomy tube and TPN with surgical correction to obstruction 03/2009 Social History - Living Situation Living arrangement: At home Living Situation: With spouse/s.o. Support System: Patient lives at home with her angus Terry, who is actively involved in her care and provide support, he titrates his own regimen of supplements for her and other supportive therapies that he integrates into her care. They have been over 51 years, lives in [place], she is looking forward to "the pig roast" coming this weekend, is a family reunion of sorts. She does have community, and is starting to see more of her "mcgrath". Medications/Allergies - Medications Home Medications: Ambulatory Orders Medication Instructions Recorded Confirmed Cholecalciferol (Vitamin D3) 250 unit PO Q2D 08/01/12 08/20/20 [Vitamin D3] [place] Oil/[place]-3 Fatty Acids 200 mg PO DAILY 08/01/12 08/20/20 [[place] Oil 1,000 mg Softgel] Selenium 400 mcg PO .Q 2 DAYS 08/01/12 08/20/20 Vitamin B Complex [Ultra B-100 1 mg PO Q2D 08/01/12 08/20/20 Complex] Potassium Chloride 10 meq PO .Q2DAYS 10/31/14 08/20/20 Lidocaine/Prilocain 2.5% Cream 1 applic TOP ONCE PRN 05/06/17 08/20/20 [Emla 2.5% Cream] Astragalus 1,000 mg PO DAILY 08/10/17 08/20/20 Echinacea Purpurea,Angustif Xt 400 mg PO DAILY 08/10/17 08/20/20 [Echinacea Extract 125 mg Cap] Folic Acid 300 mg PO .Q2 DAYS 08/10/17 08/20/20 Ginkgo Biloba [place] Extract [Ginkgo 120 mg PO DAILY 08/10/17 08/20/20 Biloba] Goldenseal 1,400 mg PO DAILY 08/10/17 08/20/20 Horny Goat [place] 750 mg PO DAILY 08/10/17 08/20/20 Milk Thistle 480 mg PO DAILY 08/10/17 08/20/20 Stinging Nettle 500 mg PO DAILY 08/10/17 08/20/20 Ondansetron [Ondansetron Odt] 8 mg ORAL Q8HR PRN 08/09/18 08/20/20 Cyanocobalamin [Vitamin B-12] 1,000 mcg SUBQ .MONTHLY 05/18/19 08/20/20 methocarbamoL [Robaxin] 500 mg PO Q8H PRN #90 tablet 08/09/20 08/20/20 Ascorbic Acid [Vitamin C] 1 cap PO .Q2DAY 08/15/20 08/20/20 Calcium Carbonate [Calcium] 1 cap PO .Q2 DAY 08/15/20 08/20/20 Copper [Paragard T 380-A] 1 tab PO .Q2DAY 08/15/20 08/20/20 Ferrous Bis-Glycinate Chelate 1 tab PO .Q 2DAYS 08/15/20 08/20/20 [Iron Glycinate] HYDROcod/ACETAM 5/325 [[place] 5/325] 1 - 2 tab PO Q4HR PRN MDD 8 08/15/20 08/20/20 Ibuprofen 200 mg PO Q4HR 08/15/20 08/20/20 Magnesium 1 cap PO .Q2DAY 08/15/20 08/20/20 Resveratrol 1 cap PO DAILY 08/15/20 08/20/20 Tumeric 1 cap PO DAILY 08/15/20 08/20/20 Vitamin E 1 cap PO .Q2DAY 08/15/20 08/20/20 Zinc Gluconate [Zinc] 1 tab PO .Q2 DAY 08/15/20 08/20/20 - Allergies Allergies/Adverse Reactions: Allergies Allergy/AdvReac Type Severity Reaction Status Date / Time Sulfa (Sulfonamide Allergy Intermediate Rash Verified 08/09/20 15:32 Antibiotics) carboplatin Allergy Unknown Verified 08/09/20 15:32 Review of Systems - Constitutional Constitutional: reports: Fatigue (worsening and persistent), Weakness, Weight stable (73.6) - Eyes Eyes: reports: Other (watery eyes persist) - Ears, Nose & Throat Ears, Nose & Throat: reports: Dry mouth - Cardiovascular Cardiovascular: reports: Decr. exercise tolerance. denies: Chest pain, Edema - Respiratory Respiratory: reports: SOB with exertion. denies: Cough - Gastrointestinal Gastrointestinal: reports: Diarrhea (intermittent loperamide; has dumping syndrome-avg 4/day), Early satiety, Good appetite. denies: Nausea (uses antiemetic for several days after tx with good results) - Genitourinary Genitourinary: reports: Dysuria, Incontinence - Musculoskeletal Musculoskeletal: reports: Back pain, Muscle aches, Stiffness, Limited range of motion, Muscle weakness - Integumentary Integumentary: reports: Dryness, Hair changes (alopecia) - Neurological Neurological: reports: General weakness, Numbness (worsening in LE; numbness mostly; burning sensation at right greater than left) - Psychiatric Psychiatric: reports: Anxiety. denies: Depression - Hematologic/Lymphatic Hematologic/Lymph: reports: Anemia (11.1). denies: Recurrent infections - All Other Systems All Other Systems: reports: Reviewed and negative Physical Exam - Vital Signs Temperature: 36.5 C Pulse Rate: 90 Respiratory Rate: 18 Blood Pressure: 128/65 - Physical Exam General Appearance: positive: No acute distress, Alert Eyes Bilateral: positive: Normal inspection, Other (eyes watery; periorbital edema) ENT: positive: No signs of dehydration Neck: positive: Trachea midline Respiratory: positive: No respiratory distress Skin: positive: Pallor, Dryness Extremities: positive: No pedal edema Neurologic/Psychiatric: positive: Oriented x3, Mood/affect nml Palliative Care - POLST Patient has POLST: No Pain: Pain improved (/10), Location (lower back radiating across; worse with twisting/bending; exacerbated with recent vacuming), Severity (3/10) Tiredness/Fatigue: Moderate (4-6) Drowsiness/Sedation: Mild (1-3) Nausea: None Anorexia: None Dyspnea: None Depression: None Anxiety: None Feelings of wellbeing/Perceived Quality of Life: Excellent, Acceptable, No change Sleep: Sleeps well Constipation: No Performance Status: Patient has had more persistent fatigue, is allowing herself to take naps and pace herself more. She still continues to want to work in her garden, is talking about possibly getting some support for caring for the house, she had been trying to vacuum and exacerbated her pain. She is anxious to get back to her previous level of functioning, her does drive her. - Palliative Care Discussion: Patient remains quite pragmatic about long-term approach to management of her disease, she continues to be very grateful for how well she is doing. We did initiate conversation around advance care planning, she reports she has most likely done this in the past, but we did discuss it is important to have this on record at this point. Initiated conversation about DPOA, she would of course default to her , but discussed the need to have at least another for an alternative, she would pick her "middle" son. She reflects on that she has been wanting to do well, her has not been willing to entertain this. She does feel quite strongly this would be helpful particularly around personal items and things that need to disseminated with some thoughtfulness. She does believe Terry would be able to be consistent in decisions if she were anemic decisions for self, we did discuss though having a more detailed advance directive often can help direct those who are making decisions what might be most important to her. She reports that they had taking care of his parents rui t end-of-life as well as her mother and are familiar with that process, she would like that for herself to have a at home. She does feel like her is very anxious and is worried about this moving forward, and does not want to be a burden on her family. Provided honoring choices, as well as a plain DPOA form, she will review and we will discuss further questions with next visit. Results - Lab Results Lab results reviewed: Yes Impression and Recommendations - Palliative Care Impression: This is a angus 75-year-old woman with recurrent ovarian cancer, currently receiving gemcitabine and Taxol, presenting with persistent fatigue. Her chronic pain from her L1 compression fracture is slowly improving, the spinal clinic did not send over RX for lumbar xrays. At this point time she would like to defer, her comfort level of functional level of continue to improve. Palliative care meeting with patient, review of pain and symptom management, and introduction of advanced care planning. Recommendations/Counseling Done: 1. Chronic pain secondary L1 compression fracture. This continues to improve, has not needed any further medication, she does have fluctuating nature of her pain, has been encouraged to avoid injury or excessive activity to avoid exacerbation. She has now trialed the salon patches, this did help. Counseling provided regarding weighing benefits and burdens of moving forward with lumbar x-rays, unfortunately had not been sent or completed, she will call if worsening symptoms, pain, or concern and we can check at that time. 2. Chemotherapy-induced peripheral neuropathy. Did review again option of pregabalin small dose at bedtime, at this point in time would like to defer. She has started the [id number] as this fits within her health belief model, she is on multiple supplements. 3. Fatigue. This is multifactorial, and continues to be persistent and worsening. She is trying to push her activity but not exacerbate her pain, counseling provided to continue to provide benefit and burden and weighing actions carefully. 4. Hypokalemia. Potassium is at 3.4, patient does have frequent stooling, is fairly medication adverse, we discussed most likely the loss of potassium is through her stooling. Encourage more frequent use of Imodium, to decrease stooling to 1-2 times a day, patient verbalized understanding, will also add higher potassium foods. 5. Advance care planning. Patient does have good social support, does understand the seriousness of her illness, has been quite chronic for her in the context of multiple treatments over the years. Introduction of recommendation to transition some of her wishes and directions and to advance care planning documents, provided honoring choices as an option as well as just a plain DPOA document. She will review and recheck if further questions. 45 minutes Review of oncology records, labs, and [id number] for counseling regarding advanced care planning, pain and symptom management, psychosocial support, and anticipatory guidance.
== END 2020-09-18 09:47 | disposition home or self-care (01) ==
LOC: PC 09:46
PROVIDERS: ATTEND Nurse Practitioner Adult Health
DX: Z51.5 Encounter for palliative care (principal); M48.57XA Collapsed vertebra, not elsewhere classified, lumbosacral region, initial encounter for fracture; G89.4 Chronic pain syndrome; G62.0 Drug-induced polyneuropathy; T45.1X5A Adverse effect of antineoplastic and immunosuppressive drugs, initial encounter; R53.83 Other fatigue; E87.6 Hypokalemia; Z79.899 Other long term (current) drug therapy
CPT/HCPCS: 99215

== ENCOUNTER 2020-10-16 09:27 | Outpatient (CLI) | payer MEDICARE, BC ==
--- NOTE | 2020-10-16 11:06 | CONSULTATION NOTE ---
Palliative Care Follow Up - Referral Referring Provider: Dr. Navin Spangler Time of Visit: 0945 60 minutes Referral setting: 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 Patient has been on multiple treatments since her initial stage III ovarian cancer diagnosed in 08/2006. She is currently on Gemcitabine/Taxol, with increased tumor marker to 25.7, he will be changing her to cis-[place] and Cytoxan to be given every 3 weeks. Patient is scheduled for a restaging CT scan of the chest and pelvic/abdomen next week. Patient continues with persistent back pain, she reports this improving but remains limiting as far as her ability to participate in her usual activities. This is been quite discouraging for her, as well as more persistent fatigue and tiredness. She also has fairly severe neuropathy in her feet, with burning sensation at bedtime, denies any in her hands though she has had a few flushing. She does have night sweats, she is on multiple supplements from her managing an integrative approach, as well as continues with symptoms of dumping syndrome of 4-5 stools in 24 hours. Patient is discouraged with her worsening numbers, her approach is always quite positive, and continues to hope for the best but is aware of the seriousness of her illness. Past Medical History: DVT, chronic diarrhea, ovarian cancer, breast cancer with left lumpectomy, right chest Port-A-Cath, IVC filter, tonsil/adenectomy, hysterectomy 2006 for regional ovarian cancer stage III, multiple rounds of chemotherapy, SBO x2, SBO with gastrostomy tube and TPN with surgical correction to obstruction 03/2009 Social History - Living Situation Living arrangement: At home Living Situation: With spouse/s.o. Support System: Patient lives at home with her Terry, who is actively involved in her care and provide support. They have been for over 51 years, live in [place]. They do have family that visit on a regular basis, she has a very active [place] [employer] and is hoping to be able to join them in the fall for get away. She has missed being out on the water, and more active, as this is often been her distraction for coping Medications/Allergies - Medications Home Medications: Ambulatory Orders Medication Instructions Recorded Confirmed Cholecalciferol (Vitamin D3) 250 unit PO Q2D 08/01/12 10/15/20 [Vitamin D3] [place] Oil/[place]-3 Fatty Acids 200 mg PO DAILY 08/01/12 10/15/20 [[place] Oil 1,000 mg Softgel] Selenium 400 mcg PO .Q 2 DAYS 08/01/12 10/15/20 Vitamin B Complex [Ultra B-100 1 mg PO Q2D 08/01/12 10/15/20 Complex] Potassium Chloride 10 meq PO .Q2DAYS 10/31/14 10/15/20 Lidocaine/Prilocain 2.5% Cream 1 applic TOP ONCE PRN 05/06/17 10/15/20 [Emla 2.5% Cream] Astragalus 1,000 mg PO DAILY 08/10/17 10/15/20 Echinacea Purpurea,Angustif Xt 400 mg PO DAILY 08/10/17 10/15/20 [Echinacea Extract 125 mg Cap] Folic Acid 300 mg PO .Q2 DAYS 08/10/17 10/15/20 Ginkgo Biloba [place] Extract [Ginkgo 120 mg PO DAILY 08/10/17 10/15/20 Biloba] Goldenseal 1,400 mg PO DAILY 08/10/17 10/15/20 Horny Goat [place] 750 mg PO DAILY 08/10/17 10/15/20 Milk Thistle 480 mg PO DAILY 08/10/17 10/15/20 Stinging Nettle 500 mg PO DAILY 08/10/17 10/15/20 Ondansetron [Ondansetron Odt] 8 mg ORAL Q8HR PRN 08/09/18 10/15/20 Cyanocobalamin [Vitamin B-12] 1,000 mcg SUBQ .MONTHLY 05/18/19 10/15/20 methocarbamoL [Robaxin] 500 mg PO Q8H PRN #90 tablet 08/09/20 10/15/20 Ascorbic Acid [Vitamin C] 1 cap PO .Q2DAY 08/15/20 10/15/20 Calcium Carbonate [Calcium] 1 cap PO .Q2 DAY 08/15/20 10/15/20 Copper [Paragard T 380-A] 1 tab PO .Q2DAY 08/15/20 10/15/20 Ferrous Bis-Glycinate Chelate 1 tab PO .Q 2DAYS 08/15/20 10/15/20 [Iron Glycinate] HYDROcod/ACETAM 5/325 [[place] 5/325] 1 - 2 tab PO Q4HR PRN MDD 8 08/15/20 10/15/20 Ibuprofen 200 mg PO Q4HR 08/15/20 10/15/20 Magnesium 1 cap PO .Q2DAY 08/15/20 10/15/20 Resveratrol 1 cap PO DAILY 08/15/20 10/15/20 Tumeric 1 cap PO DAILY 08/15/20 10/15/20 Vitamin E 1 cap PO .Q2DAY 08/15/20 10/15/20 Zinc Gluconate [Zinc] 1 tab PO .Q2 DAY 08/15/20 10/15/20 Compression Socks, Medium 1 misc DAILY 09/25/20 10/15/20 [Compression Socks] - Allergies Allergies/Adverse Reactions: Allergies Allergy/AdvReac Type Severity Reaction Status Date / Time Sulfa (Sulfonamide Allergy Intermediate Rash Verified 09/24/20 13:29 Antibiotics) carboplatin Allergy Unknown Verified 09/24/20 13:29 Review of Systems - Constitutional Constitutional: reports: Fatigue (worsening and limiting), Weakness, Night sweats (often soaking), Weight stable (74.2) - Eyes Eyes: reports: Other (watery eyes persist and worsening) - Ears, Nose & Throat Ears, Nose & Throat: reports: Hearing loss (worsening), Hearing aids, Postnasal drainage, Dry mouth. denies: Mouth lesions - Cardiovascular Cardiovascular: reports: Decr. exercise tolerance. denies: Chest pain, Edema - Respiratory Respiratory: reports: Cough (worsening but dry no productive), SOB with exertion. denies: SOB at rest - Gastrointestinal Gastrointestinal: reports: Diarrhea (intermittent loperamide; has dumping syndrome-avg 4-5 day, discussed need to be more aggressive with loperamide), Early satiety, Good appetite, Other (taste changes). denies: Nausea (uses antiemetic for several days after tx with good results) - Genitourinary Genitourinary: reports: Incontinence, Other (some symptoms of urinary re tention). denies: Dysuria - Musculoskeletal Musculoskeletal: reports: Back pain, Muscle aches, Stiffness, Limited range of motion, Muscle weakness - Integumentary Integumentary: reports: Dryness, Hair changes (alopecia) - Neurological Neurological: reports: General weakness, Numbness (worsening in LE; numbness mostly; burning sensation at right greater than left) - Psychiatric Psychiatric: reports: Anxiety. denies: Depression - Hematologic/Lymphatic Hematologic/Lymph: reports: Anemia (11.3). denies: Recurrent infections - All Other Systems All Other Systems: reports: Reviewed and negative Physical Exam - Vital Signs Temperature: 36.5 C Pulse Rate: 91 Respiratory Rate: 18 O2 Saturation: 96 (ra @ rest) Blood Pressure: 126/71 - Physical Exam General Appearance: positive: Alert, Mild distress (with CA 25.7 increase) Eyes Bilateral: positive: No lid inflammation, Conjunctivae nml, No scleral icterus, Other (eyes watering through visit) ENT: positive: No signs of dehydration Neck: positive: Trachea midline Cardiovascular: positive: Regular rate & rhythm Respiratory: positive: No respiratory distress, Diminished in bases. negative: Wheezes, Rales, Rhonchi Abdomen: positive: Non-tender, Soft Skin: positive: Dryness Extremities: positive: No pedal edema Neurologic/Psychiatric: positive: Oriented x3, Mood/affect nml Palliative Care - POLST Patient has POLST: No POLST Status: Full Code Pain: Pain improved, Location (lower back), Severity (5/10), Comment (band of "tightness" with increased activity; using APAP 500 mg BID; ice/heat; tried [place] forgot to remove so has skin reaction; did help) Tiredness/Fatigue: Severe (7-10) Nausea: Mild (1-3) Anorexia: Mild (1-3) Dyspnea: Severe (7-10) Depression: Mild (1-3) Anxiety: Mild (1-3) Feelings of wellbeing/Perceived Quality of Life: Good, Acceptable, No change Sleep: Variable sleep pattern Constipation: No Performance Status: Patient's functional status is continued decline, is less active from her baseline which is discouraging for her. She is mostly limited by fatigue and pain. She is able to manage her ADLs, is trying to limit triggering activities but finds it hard to curtail her normal routine. - Palliative Care Discussion: Discussion provided and support for ongoing building of rapport, patient remains quite pragmatic about long-term approach to management of her disease. She unfortunately presents with increasing CA-125, this is left both her and her with concerns and feeling more vulnerable. We had started discussion on advanced care planning last visit with the hope to follow-up today, given their current concern, will wait until restaging scans done and revisit with next visit. Results - Lab Results Lab results reviewed: Yes Impression and Recommendations - Palliative Care Impression: This is a angus 75-year-old woman, with recurrent ovarian cancer, with worsening Ca1 25. Patient will be receiving restaging scans next week, with most likely change in her chemotherapy regimen. Patient continues with chronic pain related to her L1 compression fracture, persistent and worsening fatigue, as well as peripheral neuropathy. Palliative care continuing to meet with patient and family regarding pain and symptom management, and provide support and anticipatory guidance Recommendations/Counseling Done: 1. Cough. This has been persistent for the last several weeks, patient does present with postnasal drip, watery eyes, has not taken any antihistamine to trial if this might help. She is scheduled for restaging scans, encouraged to try Claritin extended release take about 5:55 PM for 5 to 7 days and see if improvement.Written out instructions, both patient and acknowledge understanding. 2. Chronic pain secondary to L1 compression fracture. This continues to improve per patient's report, though does not appear to be functionally improving as far as her activity level. She did trial the salon patches unfortunate left thumb on too long, had skin reaction. She has been using acetaminophen 500 mg twice daily, instructed to increase to 3 times daily, also counseling provided regarding recommendation of low-dose opioid support for better pain control and improving functionality, she is quite clear she does not want to go this route. Did discuss continued use of ice/heat as well as she did get some relief from the topical looking at CBD and/or other ointments to provide temporary relief. 3. Chemotherapy induced peripheral neuropathy. In the context of this her was able to relay that patient has not tolerated pregabalin in the past, that it caused actual "personality changes". They had not started the l- carnitine but will give that a try, they are using some topical CBD oil with some improvement. Patient still at high risk for ongoing worsening of her peripheral neuropathy secondary to her chemotherapy. 4. Diarrhea. Patient continues with frequent stooling, again remains quite medication adverse, reviewed both with patient and rationale and encouragement to use the Imodium at least 2-3 times a day to slow down her loss of watery stools/and her medications. She is taking quite a bit of supplements, and discussed given the rapid transit is most likely not able to absorb these. 5. Fatigue. This is multifactorial, continues to be persistent and worsening. She has been tailoring her activity due to both her pain and fatigue, this is been somewhat discouraging for her. Though she is independent in ADLs, she is not even close to her baseline. 6. Advanced care planning. Had a angus discussion with her last time went by herself, she is quite worried about her and his excepting of her worsening condition. Both are somewhat discouraged with her Ca1 25 and need for change of regimen, psychosocial support and listening provided. Will await restaging scans and revisit with next visit if appropriate. 60 minutes review of labs, oncology notes, [id number] with patient, family counseling, review of medications, the pain and symptom management counseling and anticipatory guidance.
== END 2020-10-16 09:28 | disposition home or self-care (01) ==
LOC: PC 09:27
PROVIDERS: ATTEND Nurse Practitioner Adult Health
DX: Z51.5 Encounter for palliative care (principal); R05 Cough; M54.5 Low back pain; G89.29 Other chronic pain; M48.56XD Collapsed vertebra, not elsewhere classified, lumbar region, subsequent encounter for fracture with routine healing; G62.0 Drug-induced polyneuropathy; T45.1X5A Adverse effect of antineoplastic and immunosuppressive drugs, initial encounter; R19.7 Diarrhea, unspecified; R53.83 Other fatigue; C56.9 Malignant neoplasm of unspecified ovary; Z79.899 Other long term (current) drug therapy
CPT/HCPCS: 99215

== ENCOUNTER 2021-01-04 12:34 | Emergency (ER) | payer MEDICARE, BC ==
[2021-01-04] MEDS ORDERED: diltiaZEM INJ 5 MG/ML VIAL IVP STA (13:14)
--- NOTE | 2021-01-04 13:15 | ED Physician Documentation ---
PD HPI DYSPNEA - Stated complaint Stated Complaint: SOA,CARIAC ARRYTHMIA - Chief complaint Chief Complaint: Resp - History obtained from History obtained from: Patient - History of Present Illness Timing - onset: How many weeks ago (2) Timing - duration: Weeks (2) Timing - details: Gradual onset, Still present, Waxing and waning Inciting event(s): Other (getting chemo) Improved by: Rest, Sitting up Worsened by: Exertion, Laying flat, Coughing Associated symptoms: Chest pain / discomfort, Palpitations, Anxiety. No: Fever, Cough, Hemoptysis, Wheezing, Diaphoresis, Bilateral edema, Unilateral edema Similar symptoms before: Diagnosis (SVT) Recently seen: Clinic - Additional information Additional information: 75 y/o female undergoing extended care for recurrent ovarian cancer has developed rapid irregular heart rate and exertional dyspnea. Review of Systems Constitutional: denies: Fever Eyes: denies: Decreased vision Ears: denies: Ear pain Nose: denies: Rhinorrhea / runny nose, Reviewed and negative Throat: denies: Sore throat Cardiac: reports: Chest pain / pressure, Palpitations. denies: Pedal edema, Calf pain Respiratory: reports: Dyspnea, Cough GI: denies: Abdominal Pain, Nausea, Vomiting : denies: Dysuria, Frequency Skin: denies: Rash Musculoskeletal: denies: Neck pain, Back pain, Extremity pain PD PAST MEDICAL HISTORY - Past Medical History Cardiovascular: Deep vein thrombosis Respiratory: None Neuro: None Endocrine/Autoimmune: None GI: Chronic diarrhea UX INFORMATION ARCHITECT: Ovarian cancer, Breast cancer : None HEENT: None Musculoskeletal: None - Past Surgical History Past Surgical History: Yes /UX INFORMATION ARCHITECT: Other Cardiovascular: Other HEENT: Tonsil/Adenoidectomy - Present Medications Home Medications: Ambulatory Orders Medication Instructions Recorded Confirmed Cholecalciferol (Vitamin D3) 250 unit PO Q2D 08/01/12 12/03/20 [Vitamin D3] [place] Oil/[place]-3 Fatty Acids 200 mg PO DAILY 08/01/12 12/03/20 [[place] Oil 1,000 mg Softgel] Selenium 400 mcg PO .Q 2 DAYS 08/01/12 12/03/20 Vitamin B Complex [Ultra B-100 1 mg PO Q2D 08/01/12 12/03/20 Complex] Potassium Chloride 10 meq PO .Q2DAYS 10/31/14 12/03/20 Astragalus 1,000 mg PO DAILY 08/10/17 12/03/20 Echinacea Purpurea,Angustif Xt 400 mg PO DAILY 08/10/17 12/03/20 [Echinacea Extract 125 mg Cap] Folic Acid 300 mg PO .Q2 DAYS 08/10/17 12/03/20 Ginkgo Biloba [place] Extract [Ginkgo 120 mg PO DAILY 08/10/17 12/03/20 Biloba] Goldenseal 1,400 mg PO DAILY 08/10/17 12/03/20 Horny Goat [place] 750 mg PO DAILY 08/10/17 12/03/20 Milk Thistle 480 mg PO DAILY 08/10/17 12/03/20 Stinging Nettle 500 mg PO DAILY 08/10/17 12/03/20 Ondansetron [Ondansetron Odt] 8 mg ORAL Q8HR PRN 08/09/18 12/03/20 Cyanocobalamin [Vitamin B-12] 1,000 mcg SUBQ .MONTHLY 05/18/19 12/03/20 methocarbamoL [Robaxin] 500 mg PO Q8H PRN #90 tablet 08/09/20 12/03/20 Ascorbic Acid [Vitamin C] 1 cap PO .Q2DAY 08/15/20 12/03/20 Calcium Carbonate [Calcium] 1 cap PO .Q2 DAY 08/15/20 12/03/20 Copper [Paragard T 380-A] 1 tab PO .Q2DAY 08/15/20 12/03/20 Ferrous Bis-Glycinate Chelate 1 tab PO .Q 2DAYS 08/15/20 12/03/20 [Iron Glycinate] HYDROcod/ACETAM 5/325 [[place] 5/325] 1 - 2 tab PO Q4HR PRN MDD 8 08/15/20 12/03/20 Ibuprofen 200 mg PO Q4HR 08/15/20 12/03/20 Magnesium 1 cap PO .Q2DAY 08/15/20 12/03/20 Resveratrol 1 cap PO DAILY 08/15/20 12/03/20 Tumeric 1 cap PO DAILY 08/15/20 12/03/20 Vitamin E 1 cap PO .Q2DAY 08/15/20 12/03/20 Zinc Gluconate [Zinc] 1 tab PO .Q2 DAY 08/15/20 12/03/20 - Allergies Allergies/Adverse Reactions: Allergies Allergy/AdvReac Type Severity Reaction Status Date / Time Sulfa (Sulfonamide Allergy Intermediate Rash Verified 01/04/21 12:44 Antibiotics) carboplatin Allergy Unknown Verified 01/04/21 12:44 - Social History Does the pt smoke?: No Smoking Status: Never smoker Does the pt drink ETOH?: Yes Does the pt have substance abuse?: No - Immunizations Immunizations are current?: Yes - POLST Patient has POLST: No PD ED PE NORMAL - Vitals Vital signs reviewed: Yes (tachycardic and hypertensive) - General General: Alert and oriented X 3, Well developed/nourished - HEENT HEENT: Atraumatic, PERRL, EOMI - Neck Neck: Supple, no meningeal sign, No bony TTP - Cardiac Cardiac: No murmur, Other (rapid and irregular ) - Respiratory Respiratory: No respiratory distress, Clear bilaterally - Abdomen Abdomen: Normal bowel sounds, Soft, Non tender, Non distended, No organomegaly - Back Back: No CVA TTP, No spinal TTP - Derm Derm: Normal color, Warm and dry, No rash - Extremities Extremities: No deformity, No edema - Neuro Neuro: Alert and oriented X 3, 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, No motor deficit, No sensory deficit, Normal speech Eye Opening: Spontaneous Motor: Obeys Commands Verbal: Oriented GCS Score: 15 - Psych Psych: Normal mood, Normal affect Results - Vitals Vitals: Vital Signs - 24 hr 01/04/21 01/04/21 01/04/21 12:39 13:14 13:30 Temperature 36.0 C L Heart Rate 158 H 99 96 Respiratory 20 18 18 Rate Blood Pressure 119/81 H 149/115 H 90/75 O2 Saturation 94 99 99 01/04/21 01/04/21 01/04/21 14:00 14:30 15:00 Temperature Heart Rate 90 97 94 Respiratory 18 16 17 Rate Blood Pressure 110/70 110/73 105/69 O2 Saturation 98 98 96 01/04/21 15:49 Temperature Heart Rate 92 Respiratory 29 H Rate Blood Pressure 104/72 O2 Saturation 94 Oxygen O2 Source Room air - EKG (time done) 1252 Rate: Rate (enter#) (138) Rhythm: Atrial flutter Ischemia: ST elevation c/w repol Compare to prior EKG: Changed from prior EKG (SPT 09-28-2017 rate has increased, rhythm has changed to fib/flutter) Computer interpretation: Agree with computer 1554 Rate: Rate (enter#) (92) Rhythm: NSR [place]: RAD Compare to prior EKG: Changed from prior EKG (SPT earlier today the rate has decreased and the rhythm has converted to sinus.) Computer interpretation: Agree with computer - Labs Labs: Laboratory Tests 01/04/21 01/04/21 01/04/21 12:58 12:58 12:58 WBC 8.3 RBC 4.64 Hgb 14.8 Hct 43.8 MCV 94.4 MCH 31.9 H MCHC 33.8 RDW 14.3 Plt Count 199 MPV 10.6 Neut # (Auto) 5.7 Lymph # (Auto) 1.3 L [place] # (Auto) 1.2 H Eos # (Auto) 0.0 Baso # (Auto) 0.0 Absolute Nucleated RBC 0.00 Nucleated RBC % 0.0 Sodium 136 Potassium 3.4 L Chloride 98 L Carbon Dioxide 24 Anion Gap 14.0 H BUN 21 H Creatinine 1.0 Estimated GFR (MDRD) 54 L Glucose 129 H Calcium 9.8 Total Bilirubin 1.6 H AST 38 ALT 57 Alkaline Phosphatase 158 H Troponin I High Sens 21.5 H* Total Protein 7.4 Albumin 3.6 Globulin 3.8 Albumin/Globulin Ratio 0.9 L Lipase 28 01/04/21 15:34 WBC RBC Hgb Hct MCV MCH MCHC RDW Plt Count MPV Neut # (Auto) Lymph # (Auto) [place] # (Auto) Eos # (Auto) Baso # (Auto) Absolute Nucleated RBC Nucleated RBC % Sodium Potassium Chloride Carbon Dioxide Anion Gap BUN Creatinine Estimated GFR (MDRD) Glucose Calcium Total Bilirubin AST ALT Alkaline Phosphatase Troponin I High Sens 20.4 H* Total Protein Albumin Globulin Albumin/Globulin Ratio Lipase - Rads (name of study) chest Radiology: Prelim report reviewed (Impression: Suggestion of calcified pleural plaque seen in the lateral aspect of the left lower lung field. This was better evaluated on previous CT study. No acute cardiopulmonary pathology.), EMP read indepedently, See rad report Procedures - IVC sono (time) 1310 Bedside IVC sono: IVC measures (cm) (1.62), Euvolemia PD MEDICAL DECISION MAKING - ED course Complexity details: reviewed results, re-evaluated patient, considered differential, d/w patient, d/w family ED course: 75-year-old female reports the emergency department with a 2-week history of intermittent palpitations and dyspnea and she is found to be in atrial fibrillation with a rapid ventricular response and she is administered 20 mg of diltiazem with improvement in her heart rate and she eventually converts into a sinus rhythm. She feels much improved.The patient's is called and he is concerned that he may have given her too much vitamin D3 as a supplement over the last 2 weeks. He has read that it can cause atrial fibrillation. We have drawn her D3 level. Departure - Departure Disposition: 01 Home, Self Care Clinical Impression: Atrial fibrillation with RVR Condition: Stable Instructions: ED Afib Follow-Up: Navin Spangler MD [Primary Care Provider] -
[2021-01-04 13:19] LABS: BASOPHILS % (AUTO) 0.5 %; EOSINOPHILS % (AUTO) 0.4 %; HCT - HEMATOCRIT 43.8 % (37.0-47.0); HGB - HEMOGLOBIN 14.8 g/dL (12.0-16.0); LYMPHOCYTES # (AUTO) 1.3 10^3/uL (1.5-3.5); LYMPHOCYTES % (AUTO) 15.6 %; MEAN CORPUSCULAR HEMOGLOBIN 31.9 pg (27.0-31.0); MEAN CORPUSCULAR HGB CONC 33.8 g/dL (32.0-36.0); MEAN CORPUSCULAR VOLUME 94.4 fL (81.0-99.0); MEAN PLATELET VOLUME 10.6 fL (7.9-10.8); MONOCYTES # (AUTO) 1.2 10^3/uL (0.0-1.0); MONOCYTES % (AUTO) 14.7 %; NEUTROPHILS # (AUTO) 5.7 10^3/uL (1.5-6.6); NEUTROPHILS % (AUTO) 68.6 %; PLT - PLATELET COUNT 199 10^3/uL (130-450); RED BLOOD COUNT 4.64 10^6/uL (4.20-5.40); RED CELL DISTRIBUTION WIDTH 14.3 % (12.0-15.0); WHITE BLOOD COUNT 8.3 x10^3/uL (4.8-10.8)
[2021-01-04 13:32] LABS: ALBUMIN 3.6 g/dL (3.2-5.5); ALBUMIN/GLOBULIN RATIO 0.9 (1.0-2.2); BILIRUBIN,TOTAL 1.6 mg/dL (0.2-1.0); CALCIUM 9.8 mg/dL (8.5-10.3); POTASSIUM 3.4 mmol/L (3.5-5.0); TOTAL PROTEIN 7.4 g/dL (6.7-8.2)
--- NOTE | 2021-01-04 13:38 | XRAY Report ---
PROCEDURE: Chest 1 View X-Ray INDICATIONS: Chest pain TECHNIQUE: One view of the chest was acquired. COMPARISON: CT of chest dated 10/22/2020 FINDINGS: Surgical changes and devices: Right chest wall Port-A-Cath tip is in SVC. Lungs and pleura: No pleural effusions or pneumothorax. Ill-defined opacity in lateral periphery of left lower lung field is seen which may represent calcified pleural plaque seen on previous CT study. No definite focal infiltrate. Mediastinum: Mediastinal contours appear normal. Heart size is normal. Bones and chest wall: No suspicious bony lesions. Overlying soft tissues appear unremarkable. IMPRESSION: Suggestion of calcified pleural plaque seen in lateral aspect of left lower lung field. This was bett er evaluated on previous CT study. No acute cardiopulmonary pathology. Reviewed by: Pedro Yao MD on 01/04/2021 1:37 PM PDT Approved by: Pedro Yao MD on 01/04/2021 1:37 PM PDT Station ID: [id number]
[2021-01-04 16:18] VITALS: BP 106/69
== END 2021-01-04 16:21 | disposition home or self-care (01) ==
LOC: ED 12:34
DX: I48.20 Chronic atrial fibrillation, unspecified (principal); D39.10 Neoplasm of uncertain behavior of unspecified ovary; Z86.718 Personal history of other venous thrombosis and embolism
CPT/HCPCS: 36415; 71045; 80053; 82652; 83690; 84484; 85025; 93005; 96374; 99284; U0004

== ENCOUNTER 2021-01-28 09:35 | Outpatient (CLI) | payer MEDICARE, BC ==
--- NOTE | 2021-01-21 12:44 | ONCOLOGY/HEMATOLOGY VISIT ---
HEME/ONC PROGRESS NOTE: CC: MIRNA Ventura; ONCOLOGY HISTORY: 1. Ovarian cancer progression at the vaginal apex in 01/2017, again in 05/2020. a. Cisplatin 60mg/m2 and Cytoxan 500mg/m2 iv q3w x 4 till 07/2017 to CR; maintenance Niraparib/Anastrozole till 03/2018; b. TAPUR clinical trial with Cetuximab till 07/2018 for progression. c. repeat Cis/CTX iv q3wx4 till 10/2018. CR. Maintenance oral Cytoxan 50 mg daily and MTX 2.5mg BIDx2d/week. d. weekly Carbo/Taxol x3, q4w cycle, 05/2020, x 2 cycles. recurrent Reactions to carboplatin e. Gemcitabine/Taxo, day1,8,15, q28d; started 08/07/20. x 2 cycles till 10/2020. Progressing tumor marker and worsening neuropathy in the feet; f. Maintenance artemisinin 11/2020 2. Initial stage IIIc ovarian cancer diagnosed in 08/2006. a. Debulking surgery followed by adjuvant carbo and Taxol adjuvant therapy. b. Relapsed and Carbo- gemcitabine x8 cycles in 2008. c. Doxil x4 cycles until 03/2009. d. Navelbine x1 dose with poor tolerance. e. Repetitive cycles of Cisplatin and Cytoxan 06/2009 q3w Intermittently with maintenance oral Cytoxan and methotrexate Over the subsequent years. 3. NGS testing without actionable mutation. Microsatellite stable. Intermediate tumor mutation burden. 4. Poor tolerance to bevacizumab due to hypotension. 5. Grade 2 neutropenia and thrombocytopenia due to chemotherapy effect. a. GCSF support ASSESSMENT/PLAN: 1a. Recent emergency room visit for atrial fibrillation with rapid ventricular response. Here for follow-up regarding this new event. Still feeling tired. Less dyspnea on exertion. No further palpitations. a. Still hypokalemia. She will Start potassium chloride 10 mEq. Repeat potassium this Thursday. 1b. Recurrent ovarian cancer at the Vaginal cuff. a. Most recent CT scan on 10/22/20 without measurable evidence of disease. Her only known disease site is at the vaginal cuff by pelvic examination. due to accumulating chemotoxicity, particular neuropathy and marrow suppression, Previous chemotherapy had been discontinued. For the last month she had resumed Artemisinin. So far blood test showed declining CA-125. No new clinical symptoms indicating progression. Therefore we will continue to hold off systemic chemotherapy which was discussed for cisplatin 50mg/m2 and Cytoxan 500mg/m2 in 12/2020 b. We will meet in 2 weeks to regroup and reassess situation. 2. hx of Grade 2 neutropenia and thrombocytopenia. This is chemo side effect. s/p GCSF. 3. Anemia and fatigue. On oral iron supplement. vitamin B complex to daily. But iron panel reviewed low transferrin saturation at 13%. Anemia also wors ening with fatigue. a. s/p a dose of intravenous iron 510 mg Due to failure of oral formula. Normalized H/H. We will check iron panel again this coming Thursday. 4. Lower back pain due to L2 compression fracture, 08/08/2020 a. on pain meds Intermittently; b. did not go to see production specialist in [place]. Encouraged her to call them back to have a Second opinion on management 5. Vision change. Blurry. Also having tearing eyes. Encouraged to follow-up with Bioinformatics Technician. 6. Neuropathy of the feet. She is having unsteadiness of the gait which she is very concerning. no falls. Overall stable. HISTORY OF CURRENT ILLNESS/REVIEW OF SYSTEMS: As dictated on note of 06/11/2020 for details. Monika is here with for ongoing care regarding above high complexity issues. Was seen in the emergency room on 01/04/21 due to dyspnea and weakness. Indeed found to have atrial fibrillation with RVR. She received intravenous diltiazem with conversion. There was also cardiac enzymes leakage. Work-up reviewed abnormal electrolytes. Potassium was as low as 3.2. When we repeat potassium last week it was normalized. She for the last week no further palpitation. But ongoing dizziness when changing position from bending to standing up. No interval fever or chills. No nausea vomiting. No vaginal spotting. No abdominal bloating. physical activity has Improved. SOCIAL, Past medical and family HISTORY: No change from note of 06/11/2020. Allergic to sulfa drugs. DCIS of the breast. Negative BRCA gene testing. DVT in 10/2004 with IVC filter still in place. No contributing family history. PHYSICAL EXAM: Weight is 72 kg. BP 140/87. O2 sat 96% HEENT; no jaundice, Heart; regular rhythm; Abdomen; soft nontender, no hepatosplenomegaly, no signs of ascites. Extremity; no clubbing, no peripheral edema, no cyanosis, Skin. No new rash. No petechia or purpura. Extensive ER records reviewed. E/M code was selected based on 30 minutes spent on the date of encounter reviewing pertinent history and previous diagnostics, performing medically appropriate examination and evaluation, ordering diagnostic tests and/or medications, counseling and education to patient/family/caregiver. This excludes activities performed by clinical staff. Clinical Data: Allergies Sulfa (Sulfonamide Antibiotics) Allergy (Intermediate, Verified 01/04/21 12:44) Rash carboplatin Allergy (Verified 01/04/21 12:44) Unknown Home Medications Cholecalciferol (Vitamin D3) [Vitamin D3] 250 unit PO Q2D 08/01/12 [History Last Taken Unknown] Dike Oil/[place]-3 Fatty Acids [[place] Oil 1,000 mg Softgel] 200 mg PO DAILY 08/01/12 [History Last Taken Unknown] Selenium 400 mcg PO .Q 2 DAYS 08/01/12 [History Last Taken Unknown] Vitamin B Complex [Ultra B-100 Complex] 1 mg PO Q2D 08/01/12 [History Last Taken Unknown] Potassium Chloride 10 meq PO .Q2DAYS 10/31/14 [History Last Taken Unknown] Astragalus 1,000 mg PO DAILY 08/10/17 [History Last Taken Unknown] Echinacea Purpurea,Angustif Xt [Echinacea Extract 125 mg Cap] 400 mg PO DAILY 08/10/17 [History Last Taken Unknown] Folic Acid 300 mg PO .Q2 DAYS 08/10/17 [History Last Taken Unknown] Ginkgo Biloba [place] Extract [Ginkgo Biloba] 120 mg PO DAILY 08/10/17 [History Last Taken Unknown] Goldenseal 1,400 mg PO DAILY 08/10/17 [History Last Taken Unknown] Horny Goat [place] 750 mg PO DAILY 08/10/17 [History Last Taken Unknown] Milk Thistle 480 mg PO DAILY 08/10/17 [History Last Taken Unknown] Stinging Nettle 500 mg PO DAILY 08/10/17 [History Last Taken Unknown] Ondansetron [Ondansetron Odt] 8 mg ORAL Q8HR PRN 08/09/18 [History Last Taken Unknown] Cyanocobalamin [Vitamin B-12] 1,000 mcg SUBQ .MONTHLY 05/18/19 [History Last Taken Unknown] Ascorbic Acid [Vitamin C] 1 cap PO .Q2DAY 08/15/20 [History Last Taken Unknown] Calcium Carbonate [Calcium] 1 cap PO .Q2 DAY 08/15/20 [History Last Taken Unknown] Copper [Paragard T 380-A] 1 tab PO .Q208/15/20 [History Last Taken Unknown] Ferrous Bis-Glycinate Chelate [Iron Glycinate] 1 tab PO .Q 2DAYS 08/15/20 [History Last Taken Unknown] HYDROcod/ACETAM 5/325 [[place] 5/325] 1 - 2 tab PO Q4HR PRN MDD 8 08/15/20 [History Last Taken Unknown] Ibuprofen 200 mg PO Q4HR 08/15/20 [History Last Taken Unknown] Magnesium 1 cap PO .Q208/15/20 [History Last Taken Unknown] Resveratrol 1 cap PO DAILY 08/15/20 [History Last Taken Unknown] Tumeric 1 cap PO DAILY 08/15/20 [History Last Taken Unknown] Vitamin E 1 cap PO .Q208/15/20 [History Last Taken Unknown] Zinc Gluconate [Zinc] 1 tab PO .Q2 DAY 08/15/20 [History Last Taken Unknown]
--- NOTE | 2021-01-28 16:46 | DEXA Report ---
PROCEDURE: Dexa Spine and/or Hip INDICATIONS: POST MENOPAUSAL TECHNIQUE: Dual energy x-ray absorptiometry (DXA) was performed on a CompBlue System. Regions measur ed are the AP Spine, femoral neck, and if needed forearm. COMPARISON: None. FINDINGS: Lumbar Spine: Bone Mineral Density 1.0 g/cm/cm,T score -1.6, osteopenia Left Hip: Bone Mineral Density 0.8 g/cm/cm,T score -1.7, osteopenia (T score less than or equal to -2.5 to: OSTEOPOROSIS) Impression: Osteopenia of the lumbar spine and left hip. Patients with diagnosis of osteoporosis or osteopenia should have regular bone mineral density assess ment. For those eligible for Medicare, routine testing is allowed once every 2 years. Testing frequ ency can be increased for patients who have rapidly progressing disease or for those who are receivin g medical therapy to restore bone mass. Reviewed by: Patricio Resendiz MD on 01/28/2021 4:45 PM PST Approved by: Patricio Resendiz MD on 01/28/2021 4:45 PM PST Station ID: [id number]
== END 2021-01-28 09:36 | disposition home or self-care (01) ==
LOC: DI 09:35
PROVIDERS: ATTEND Internal Medicine Hematology & Oncology
DX: Z78.0 Asymptomatic menopausal state (principal); M85.89 Other specified disorders of bone density and structure, multiple sites

== ENCOUNTER 2021-02-06 11:34 | Outpatient (CLI) | payer MEDICARE, BC ==
--- NOTE | 2021-02-06 16:27 | XRAY Report ---
PROCEDURE: Lumbar Spine 2 View INDICATIONS: L1 FRACTURE TECHNIQUE: 2 views of the lumbar spine were acquired. COMPARISON: None. FINDINGS: Bones: 5 [id number] vertebrae are present. There is normal bony alignment. There is a sabine sussy deformity of approximately 54% at L1, unchanged compared to 10/22/2020. Multilevel degenerative c hanges including disc and foraminal narrowing are present most severe at L5-S1. No suspicious bony le sions. Soft tissues: Overlying bowel gas pattern is normal. No suspicious soft tissue calcifications. Inf erior vena cava filter is noted. IMPRESSION: Stable appearance of L1 compression deformity compared to prior exam. Reviewed by: Pricila Almanza MD on 02/06/2021 4:26 PM PST Approved by: Pricila Almanza MD on 02/06/2021 4:26 PM PST Station ID: [id number]
== END 2021-02-06 11:35 | disposition home or self-care (01) ==
LOC: DI 11:34
PROVIDERS: ATTEND Nurse Practitioner Family
DX: S32.010D Wedge compression fracture of first lumbar vertebra, subsequent encounter for fracture with routine healing (principal)

== ENCOUNTER 2021-05-06 12:18 | Day surgery (SDC) | payer MEDICARE, BC ==
[2021-05-06] MEDS ORDERED: CEFAZOLIN SODIUM IN 0.9 % NACL 2 GM/50 ML BAG IV ONE (12:32)
[2021-05-06] MEDS ORDERED: LACTATED RINGERS 1,000 ML IV ONE ×2 (13:00→14:54)
[2021-05-06] MEDS ORDERED: NALOXONE 0.4 MG/ML VIAL IVP PRN (13:41)
[2021-05-06] MEDS ORDERED: ONDANSETRON 4 MG/2 ML VIAL IVP PRN (13:41)
[2021-05-06] MEDS ORDERED: fentaNYL 100 MCG/2 ML VIAL IVP PRN (13:41)
[2021-05-06] MEDS ORDERED: METOCLOPRAMIDE 10 MG/2 ML VIAL IVP PRN (13:41)
[2021-05-06] MEDS ORDERED: ePHEDrine 50 MG/ML VIAL IVP PRN (13:41)
[2021-05-06] MEDS ORDERED: MORPHINE 2 MG/ML CARPUJECT IVP PRN (13:41)
[2021-05-06] MEDS ORDERED: HYDROmorphone 0.5 MG/0.5 ML SYRINGE IVP PRN (13:41)
[2021-05-06] MEDS ORDERED: ATROPINE ABBOJECT 1 MG/10 ML SYRINGE IVP PRN (13:41)
--- NOTE | 2021-05-06 13:41 | ANESTHESIA ---
Pre-Anesthesia VS, & Labs - Diagnosis ovarian CA - Procedure port removal and new port placement Vital Signs: Temp Pulse Resp BP Pulse Ox 36.6 C 85 14 122/70 96 05/06/21 12:41 05/06/21 12:41 05/06/21 12:41 05/06/21 12:41 05/06/21 12:41 Height: 5 ft 6 in Weight (kg): 70 kg Body Mass Index: 24.9 BMI Classification: Healthy weight - NPO >8 hours - Is Patient ?: No Home Medications and Allergies Cholecalciferol (Vitamin D3) [Vitamin D3] 250 unit PO Q2D 08/01/12 [place] Oil/[place]-3 Fatty Acids [[place] Oil 1,000 mg Softgel] 200 mg PO DAILY 08/01/12 Selenium 400 mcg PO .Q 2 DAYS 08/01/12 Vitamin B Complex [Ultra B-100 Complex] 1 mg PO Q2D 08/01/12 Potassium Chloride 20 meq PO DAILY 10/31/14 Astragalus 1,000 mg PO DAILY 08/10/17 Echinacea Purpurea,Angustif Xt [Echinacea Extract 125 mg Cap] 400 mg PO DAILY 08/10/17 Folic Acid 300 mg PO .Q2 DAYS 08/10/17 Ginkgo Biloba [place] Extract [Ginkgo Biloba] 120 mg PO DAILY 08/10/17 Goldenseal 1,400 mg PO DAILY 08/10/17 Horny Goat [place] 750 mg PO DAILY 08/10/17 Milk Thistle 480 mg PO DAILY 08/10/17 Stinging Nettle 500 mg PO DAILY 08/10/17 Ondansetron [Ondansetron Odt] 8 mg ORAL Q8HR PRN 08/09/18 Cyanocobalamin [Vitamin B-12] 1,000 mcg SUBQ .MONTHLY 05/18/19 Ascorbic Acid [Vitamin C] 1 cap PO .Q2DAY 08/15/20 Calcium Carbonate [Calcium] 1 cap PO .Q2 DAY 08/15/20 Copper [Paragard T 380-A] 1 tab PO .Q2DAY 08/15/20 Ferrous Bis-Glycinate Chelate [Iron Glycinate] 1 tab PO .Q 2DAYS 08/15/20 HYDROcod/ACETAM 5/325 [[place] 5/325] 1 - 2 tab PO Q4HR PRN MDD 8 08/15/20 Ibuprofen 200 mg PO Q4HR 08/15/20 Magnesium 1 cap PO .Q208/15/20 Resveratrol 1 cap PO DAILY 08/15/20 Tumeric 1 cap PO DAILY 08/15/20 Vitamin E 1 cap PO .Q2DAY 08/15/20 Zinc Gluconate [Zinc] 1 tab PO .Q2 DAY 08/15/20 Allergies/Adverse Reactions: Allergies Allergy/AdvReac Type Severity Reaction Status Date / Time Sulfa (Sulfonamide Allergy Intermediate Rash Verified 05/03/21 12:37 Antibiotics) carboplatin Allergy Unknown Verified 05/03/21 12:37 oyster extract Allergy Nausea Verified 05/03/21 12:37 Anes History & Medical History - Anesthetic History Anesthesia Complications: reports: No previous complications Family history of Anesthesia Complications: Denies Family history of Malignant Hyperthermia: Denies - Medical History Cardiovascular: reports: None, Other (Hx of AFIb, converted with medication. Currently in NSR) Pulmonary: reports: None Gastrointestinal: reports: Chronic diarrhea Urinary: reports: None Neuro: reports: None Musculoskeletal: reports: Chronic back pain Endocrine/Autoimmune: reports: None Blood Disorders: reports: None Skin: reports: None Smoking Status: Never smoker History of Cancer?: Yes (Ovarian CA) - Surgical History General: reports: Colonoscopy Eyes Ears Nose Throat (EENT): reports: Tonsil/Adenoidectomy Cardiothoracic: reports: Other Gynecologic: reports: Dilation and currettage, Hysterectomy, Other Exam General: Alert, Oriented x3, Cooperative Dental: WNL Mouth Openin Fingerbreadth Neck Mobility: Normal Mallampati classification: II Thyromental Distance: 4-6 cm Respiratory: Lungs clear Cardiovascular: Regular rate Plan Anesthesia Type: General Consent for Procedure(s) Verified and Reviewed: Yes Code Status: Attempt Resuscitation ASA classification: 3-Severe systemic disease Is this case an emergency?: No
[2021-05-06] MEDS ORDERED: LIDOCAINE 2%-EPI 1:100000 20 ML MDV ONE (13:44)
[2021-05-06] MEDS ORDERED: BUPIVACAINE 0.25% PF 10 ML VIAL ONE (13:45)
[2021-05-06] MEDS ORDERED: BUPIVACAINE 0.5% PF 10 ML VIAL ONE (13:45)
[2021-05-06] MEDS ORDERED: fentaNYL 100 MCG/2 ML VIAL ONE (13:57)
[2021-05-06] MEDS ORDERED: ONDANSETRON 4 MG/2 ML VIAL ONE (13:58)
[2021-05-06] MEDS ORDERED: LIDOCAINE-MPF 2% 5 ML VIAL ONE (13:58)
[2021-05-06] MEDS ORDERED: PROPOFOL 200 MG/20 ML VIAL IVP ONE (13:58)
[2021-05-06] MEDS ORDERED: LACTATED RINGERS 1,000 ML IV SCH (14:00)
[2021-05-06] MEDS ORDERED: LIDOCAINE 2%-EPI 1:100000 20 ML MDV SUBQ ONE ×2 (14:27)
[2021-05-06] MEDS ORDERED: BUPIVACAINE 0.25% PF 10 ML VIAL SUBQ ONE ×2 (14:27)
[2021-05-06] MEDS ORDERED: ePHEDrine 50 MG/ML VIAL IVP ONE (14:45)
--- NOTE | 2021-05-06 14:55 | OPERATIVE REPORT ---
Operative Report - General Procedure Date: 05/06/21 Planned Procedure: Right Akhbdn-z-Iiky removal and left Hddzvv-a-Yqer placement Pre-Op Diagnosis: Stage III ovarian cancer Procedure Performed: Right Axpnrf-n-Cqqt removal and left PowerPort placement Post Op Diagnosis: Recurrent ovarian cancer - Procedure Note Primary Surgeon: Maday Anesthesia Provider: SELWYN Munroe Anesthesia Technique: General LMA Pathology: None Estimated Blood Loss (mL): 10 Indications: Very old right subclavian port no longer functioning Findings: 1. Right port tubingEroded through with a posterior hole in the tubing itself. 2. Tubing completely incorporated. Unable to remove from the subclavian vein 3. Left PowerPort in good position in the superior vena cava Complications: Unable to remove the right port tubing - Other Other Information/Narrative: After obtaining informed consent, the patient is brought to the operating room and placed in supine position on the operating table. Following successful induction of sedation with monitored anesthesia care and appropriate padding of all bony prominences, the bilateral chest and neck were prepped and draped in th e standard surgical fashion. A timeout was held per scope protocol. All elements of the surgical safety checklist were followed before, during, and after the procedure. We began the procedure on the right.Mixture of local anesthetics was infiltrated over the port and then the existing incision to create a field block.An incision was created repeating the existing scar and carried through the skin and subcutaneous tissue. Careful dissection was carried down to the port in the neck of the port and the blue securing ring were identified. This was gently grasped and elevated into the field revealing the attached white port tubing.The port tubing itself was quite discolored and attenuated.There was a visible opening in the port tubing posteriorly.I attempted to remove the port from the vein with careful consistent negative pressure.The tubing itself could not be removed. It is densely incorporated into the subcutaneous tissue and possibly even into the wall of the vein.I elected to truncate the tubing at the site of the existing hole. A Vicryl suture was then tied around the end of the tubing to prevent any possible reflux.It is notable that there was no flow of blood from the tubing at all.Once the tubing was tied I released it and it lay below the clavicle in the right chest.I continued by dissecting the port reservoir and attached portion of tubing from the pocket. This was done sharply. It was delivered into the field. The pocket was checked for hemostasis. It was then closed with Monocryl suture.Returned our attention to the new port on the left side. Following infiltration with local anesthetic to create a field block, the left subclavian vein was accessed in the deltopectoral groove. The J-wire was gently placed into the vein. Fluoroscopy was used to confirm the position of the wire and in the subclavian vein. We anesthetized the existing healed scar in the area around it for placement of the port itself. An incision was created here and carried down through the skin and subcutaneous tissue. A pocket was created with blunt dissection. The port tubing was attached to the tunneling device and passed from the access site of the vein into the pocket. It was trimmed to an appropriate length and the port attached. The port was sewn into place in the pocket. The dilator and introducer were then passed over the J-wire that was in the subclavian vein. The J-wire and dilator were removed leaving only the introducer. The tubing was then passed through the introducer and the introducer cracked and removed per mold engraver's directions. The port was then checked for function and flushed and acacia easily. Additional local anesthetic was applied to the chest wall. The port pocket was closed with interrupted Vicryl sutures and Monocryl stitches were placed in both skin incision sites. All sponge, needle, and instrument counts were correct at the conclusion of the case. Chest x-ray in the postanesthesia care unit revealed the port in good position in the superior vena cava without evidence of pneumothorax.
[2021-05-06] MEDS ORDERED: oxyCODONE 5 MG TABLET PO PRN (15:01)
--- NOTE | 2021-05-06 15:35 | XRAY Report ---
PROCEDURE: Chest for Line Placement INDICATIONS: Right port tubing not removable. Left port placed TECHNIQUE: One view of the chest was acquired. COMPARISON: 04/29/2021 FINDINGS: Surgical changes and devices: Left chest wall Port-A-Cath tip is in the upper SVC. Right-sided centra l venous catheter tip is in lower SVC.. Lungs and pleura: No pleural effusions or pneumothorax. Small radiodensity projecting over left lowe r lung field is again seen and unchanged in size and appearance from prior study. No focal infiltrate . Mediastinum: Mildly tortuous thoracic aorta is seen. Heart size is normal. Bones and chest wall: No suspicious bony lesions. Overlying soft tissues appear unremarkable. IMPRESSION: Left chest wall Port-A-Cath tip is in upper SVC. Right sided central venous catheter tip is in lower SVC. No focal infiltrate, pleural effusion or pneumothorax. Stable-appearing calcification in left br east projecting over left lower lung field. Reviewed by: Pedro Yao MD on 05/06/2021 3:34 PM PST Approved by: Pedro Yao MD on 05/06/2021 3:34 PM PST Station ID: [id number]
[2021-05-06 15:40] VITALS: BP 122/56
--- NOTE | 2021-05-06 15:53 | XRAY Report ---
PROCEDURE: OR Port-A-Cath INDICATIONS: PORT PLACEMENT TECHNIQUE: Single intraoperative fluoroscopic image of upper chest COMPARISON: Chest radiograph dated 04/29/2021. FINDINGS: Intraoperative fluoroscopic image shows left-sided guidewire placement into the region of upper SVC. IMPRESSION: Fluoroscopy guidance was provided intraoperatively for left-sided Port-A-Cath placement. Reviewed by: Pedro Yao MD on 05/06/2021 3:52 PM PST Approved by: Pedro Yao MD on 05/06/2021 3:52 PM PST Station ID: [id number]
--- NOTE | 2021-05-06 16:01 | ANESTHESIA POST OP EVALUATION ---
Anesthesia Post Eval - Post Anesthesia Eval Vitals: Last Vital Signs Temp 36.4 C L 05/06/21 15:39 Pulse 79 05/06/21 15:39 Resp 13 05/06/21 15:39 BP 122/56 L 05/06/21 15:39 Pulse Ox 96 05/06/21 15:39 CV Function Including HR & BP: Stable Pain Control: Satisfactory Nausea & Vomiting: Negative Mental Status: Baseline Respiratory Status: Airway Patent Hydration Status: Satisfactory Anesthesia Complications: None
== END 2021-05-06 12:19 | disposition home or self-care (01) ==
LOC: SDS 12:18
PROVIDERS: ATTEND Surgery
DX: T82.514A Breakdown (mechanical) of infusion catheter, initial encounter (principal); C56.9 Malignant neoplasm of unspecified ovary; Z80.3 Family history of malignant neoplasm of breast
CPT/HCPCS: 36561; 36590; C1788; J0690; J7120

== ENCOUNTER 2022-04-17 10:25 | Outpatient (CLI) | payer MEDICARE, BC ==
--- NOTE | 2022-04-22 11:27 | XRAY Report ---
PROCEDURE: Fluoro Independent Procedure INDICATIONS: OVARIAN CA TECHNIQUE: Contrast was injected into the mallory catheter and fluoroscopic imaging was performed. COMPARISON: None. 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 IMPRESSION: Occlusion of the superior vena cava. Reviewed by: Patricio Resendiz MD on 04/22/2022 11:25 AM [facility] Approved by: Patricio Resendiz MD on 04/22/2022 11:25 AM [facility] Station ID: [id number]
== END 2022-04-17 10:26 | disposition home or self-care (01) ==
LOC: DI 10:25
PROVIDERS: ATTEND Internal Medicine Hematology & Oncology
DX: I82.210 Acute embolism and thrombosis of superior vena cava (principal); C56.9 Malignant neoplasm of unspecified ovary
CPT/HCPCS: 76000; Q9965